=== PATIENT | female | born 1940 | race Caucasian/White ===

== ENCOUNTER 2018-02-26 08:20 | Emergency (ER) | payer MEDICARE, OTHER ==
[~2018-02-26] VITALS: Ht 154.9 cm; Wt 48.5 kg
[~2018-02-26 08:20] MED LIST: CARAFATE1 GM; FAMOTIDINE20 MG PO; FENTANYL TD; FENTANYL1 EAC1; HYDROCODONE-AP1 EA10 PO; KLONOPIN0.5 MG PO; SERTRALINE HCL100 MG PO; ULTRAM50 MG PO; XANAX0.5 MG PO; Z.0.ATENOLOL50 MG PO; Z.0.PAXIL20 MG PO; Z.0.ZOLOFT50 MG PO
--- OUTSIDE RECORDS SUMMARY | 2018-02-26 08:24 | XMS REPORT | Summary of Care ---
Author Author [facility] Organization [facility] Address Unknown Phone Unavailable Encounter JO Tim(IRENE) [id number] Date(s): 02/03/17 - 02/04/17 [facility] [address] [place] [address]- Discharge Diagnosis: Lumbar compression fracture Discharge Disposition: Home or Self Care Attending Physician: Brian Black MD Vital Signs 1 2 3 Most recent to oldest [Reference Range]: 157.48 cm (02/03/17 3:30 PM) Height 98.5 DegF (02/03/17 3:30 PM) Temperature Oral [96.4-99.1 DegF] 133/61 mmHg (02/04/17 12:16 AM) 125/53 mmHg (02/03/17 10:49 PM) 132/62 mmHg (02/03/17 9:15 PM) Blood Pressure [90-140/60-90 mmHg] 18 BRMIN (02/03/17 3:30 PM) Respiratory Rate [14-20 BRMIN] 69 bpm (02/04/17 12:16 AM) 69 bpm (02/03/17 3:30 PM) Peripheral Pulse Rate [60-100 bpm] 51.364 kg (02/03/17 3:30 PM) Weight 20.71 m2 (02/03/17 3:30 PM) Body Mass Index Problem List Condition Effective Dates Status Health Status Informant Abdominal Active pain(Confirmed) Anxiety(Confirmed) Active Arthritis(Confirmed) Resolved Back pain(Confirmed) Active Cholecystectomy(Conf Active irmed) Reflux(Confirmed) Active Allergies, Adverse Reactions, Alerts Substance Reaction Severity Status codeine sulfate Active penicillins Active sulfa drugs Active Medications Dilaudid 0.5 mg, Route: IVP, ONCE, Dosing Weight 51.364, kg, Priority: STAT, Start date: 02/03/17 23:18:00 CDT, Stop date: 02/03/17 23:18:00 CDT Start Date: 02/03/17 Stop Date: 02/04/17 Status: Completed morphine Sulfate 4 mg, 1 mL, Route: IVP, Drug form: SOLN, ONCE, Dosing Weight 51.364, kg, Priorit y: STAT, Start date: 02/03/17 20:04:00 CDT, Stop date: 02/03/17 20:04:00 CDT Notes: (Same as:MORPhine Sulfate) Start Date: 02/03/17 Stop Date: 02/03/17 Status: Completed ondansetron 4 mg, 2 mL, Route: IVP, Drug form: INJ, ONCE, Dosing Weight 51.364, kg, Priority : STAT, Start date: 02/03/17 20:04:00 CDT, Stop date: 02/03/17 20:04:00 CDT Notes: (Same as: Stephen) MEDICATION WASTE Product Size: 4 mgProduct Was evan: ___ mg Start Date: 02/03/17 Stop Date: 02/03/17 Status: Completed tramadol 50 mg oral tablet 50 mg=1 tab, PO, BID, X 15 day, # 20 tab, 0 Refill(s) Start Date: 02/03/17 Stop Date: 02/18/17 Status: Ordered Results ELECTROLYTES Most recent to 1 oldest [Reference Range]: Sodium Lvl [135-145 139 mEq/L mEq/L] (02/03/17 8:34 PM) Potassium Lvl 3.6 mEq/L [3.5-5.1 mEq/L] (02/03/17 8:34 PM) Chloride Lvl [95-109 108 mEq/L mEq/L] (02/03/17 8:34 PM) CO2 [24-32 mEq/L] 23 mEq/L *LOW* (02/03/17 8:34 PM) AGAP [10.0-20.0 11.6 mEq/L mEq/L] (02/03/17 8:34 PM) CHEM PANEL Most recent to 1 oldest [Reference Range]: Creatinine Lvl 0.75 mg/dL [0.50-1.40 mg/dL] (02/03/17 8:34 PM) eGFR 79 mL/min/1.73m2 1 *NA* (02/03/17 8:34 PM) BUN [7-22 mg/dL] 13 mg/dL (02/03/17 8:34 PM) B/C Ratio [6-25] 17 (02/03/17 8:34 PM) Glucose Lvl [70-99 106 mg/dL mg/dL] *HI* (02/03/17 8:34 PM) Total Protein 7.4 g/dL [6.4-8.4 g/dL] (02/03/17 8:34 PM) Albumin Lvl [3.5-5.0 3.4 g/dL g/dL] *LOW* (02/03/17 8:34 PM) Globulin [2.7-4.2 4.0 g/dL g/dL] (02/03/17 8:34 PM) A/G Ratio [0.7-1.6] 0.8 (02/03/17 8:34 PM) Calcium Lvl 8.6 mg/dL [8.5-10.5 mg/dL] (02/03/17 8:34 PM) ALT [0-65 unit/L] 11 unit/L (02/03/17 8:34 PM) AST [0-37 unit/L] 12 unit/L (02/03/17 8:34 PM) Alk Phos [39-136 110 unit/L unit/L] (02/03/17 8:34 PM) Bili Total [0.2-1.3 0.3 mg/dL mg/dL] (02/03/17 8:34 PM) 1Result Comment: The eGFR is calculated using the CKD-EPI formula. In most young, healthy individuals the eGFR will be >90 mL/min/1.73m2. The eGFR declines with age. An eGFR of 60-89 may be normal in some populations, particularly the elderly, for whom the CKD-EPI formula has not been extensively validated. Use of the eGFR is not recommended in the following populations: Individuals with unstable creatinine concentrations, including patients and those with serious co-morbid conditions. Patients with extremes in muscle mass or diet. The data above are obtained from the National Kidney Disease Education Program ( NKDEP) which additionally recommends that when the eGFR is used in patients with extremes of body mass index for purposes of drug dosing, the eGFR should be mul tiplied by the estimated BMI. HEMATOLOGY Most recent to 1 oldest [Reference Range]: WBC [3.7-10.4 K/CMM] 8.5 K/CMM (02/03/17 8:34 PM) RBC [4.20-5.40 4.13 M/CMM M/CMM] *LOW* (02/03/17 8:34 PM) Hgb [12.0-16.0 g/dL] 13.5 g/dL (02/03/17 8:34 PM) Hct [36.0-48.0 %] 40.0 % (02/03/17 8:34 PM) MCV [80.0-98.0 fL] 96.7 fL (02/03/17 8:34 PM) MCH [27.0-31.0 pg] 32.7 pg *HI* (02/03/17 8:34 PM) MCHC [32.0-36.0 33.8 g/dL g/dL] (02/03/17 8:34 PM) RDW [11.5-14.5 %] 13.0 % (02/03/17 8:34 PM) Platelet [133-450 246 K/CMM K/CMM] (02/03/17 8:34 PM) MPV [7.4-10.4 fL] 7.8 fL (02/03/17 8:34 PM) Segs [45.0-75.0 %] 57.7 % (02/03/17 8:34 PM) Lymphocytes 30.7 % [20.0-40.0 %] (02/03/17 8:34 PM) Monocytes [2.0-12.0 8.3 % %] (02/03/17 8:34 PM) Eosinophils [0.0-4.0 2.8 % %] (02/03/17 8:34 PM) Basophils [0.0-1.0 0.5 % %] (02/03/17 8:34 PM) Segs-Bands # 4.9 K/CMM [1.5-8.1 K/CMM] (02/03/17 8:34 PM) Lymphocytes # 2.6 K/CMM [1.0-5.5 K/CMM] (02/03/17 8:34 PM) Monocytes # [0.0-0.8 0.7 K/CMM K/CMM] (02/03/17 8:34 PM) Eosinophils # 0.2 K/CMM [0.0-0.5 K/CMM] (02/03/17 8:34 PM) Immunizations Given and Recorded Vaccine Date Status Refusal Reason pneumococcal 23-valent vaccine 12/11/10 Given Procedures No data available for this section Social History Social History Type Response Smoking Status Never smoker; Exposure to Tobacco Smoke None; Cigarette Smoking Last 365 Days No; Reg Smoking Cessation Counseling No Assessment and Plan No data available for this section
--- OUTSIDE RECORDS SUMMARY | 2018-02-26 08:24 | XMS REPORT | CCD ---
Author Author Auto Generated Organization [facility] Address Unknown Phone Unavailable Care Team Providers Care [employer] Employee Name Role Phone Nguyễn Colindres CP Allergies, Adverse Reactions, Alerts Substance Reaction Status penicillins Active sulfa drugs Active Problem List Condition Effective Dates Status Abdominal pain Active Anxiety Active Back pain Active Cholecystectomy Active Reflux Active Medications Medication Instructions Start Date End Date Status pneumococcal 0.5 ml, Route: IM, Drug Form: INJ, 12/11/2010 12/11/2010 Completed 23-valent vaccine Start date: 12/11/10 9:00:00, Stop date: 12/11/10 9:00:00 Immunizations Vaccine Date Status pneumococcal 23-valent vaccine 12/11/2010 Auth (Verified)
--- OUTSIDE RECORDS SUMMARY | 2018-02-26 08:24 | XMS REPORT | Summary of Care ---
Author Author [facility] Organization [facility] Address Unknown Phone Unavailable Encounter JO Tim(IRENE) [id number] Date(s): 02/05/17 - 02/05/17 [facility] [address] [place] [address]- [phone] Discharge Diagnosis: Acute right-sided low back pain Discharge Diagnosis: Acute UTI Discharge Disposition: Home or Self Care Attending Physician: Idris Nichole DO Vital Signs 1 2 3 Most recent to oldest [Reference Range]: 162.56 cm (02/05/17 3:43 PM) Height 98.5 DegF (02/05/17 7:17 PM) 98.4 DegF (02/05/17 3:43 PM) Temperature Oral [96.4-99.1 DegF] 129/56 mmHg (02/05/17 7:17 PM) 108/41 mmHg (02/05/17 6:01 PM) 136/67 mmHg (02/05/17 3:43 PM) Blood Pressure [90-140/60-90 mmHg] 15 BRMIN (02/05/17 7:17 PM) 16 BRMIN (02/05/17 6:01 PM) 17 BRMIN (02/05/17 3:43 PM) Respiratory Rate [14-20 BRMIN] 68 bpm (02/05/17 7:17 PM) 72 bpm (02/05/17 6:01 PM) 68 bpm (02/05/17 3:43 PM) Peripheral Pulse Rate [60-100 bpm] 50 kg (02/05/17 3:43 PM) Weight 18.92 m2 (02/05/17 3:43 PM) Body Mass Index Problem List Condition Effective Dates Status Health Status Informant Abdominal Active pain(Confirmed) Anxiety(Confirmed) Active Arthritis(Confirmed) Resolved Back pain(Confirmed) Active Cholecystectomy(Conf Active irmed) Reflux(Confirmed) Active Allergies, Adverse Reactions, Alerts Substance Reaction Severity Status codeine sulfate Active penicillins Active sulfa drugs Active Medications fosfomycin 3 gm, 1 pkt, Route: PO, Drug form: PDR/REC, ONCE, Dosing Weight 50, kg, Start da te: 02/05/17 19:16:00 CDT, Stop date: 02/05/17 19:16:00 CDT Notes: (Same as: Monural) mix w/ 90 to 120 ml (3 to 4 ounces) of water and stir to dissolve. Do not use hot water. Take immediately after dissolving in water. Start Date: 02/05/17 Stop Date: 02/05/17 Status: Ordered tramadol 50 mg, 1 tab, Route: PO, Drug form: TAB, ONCE, Dosing Weight 50, kg, Start date: 02/05/17 18:09:00 CDT, Stop date: 02/05/17 18:09:00 CDT, .. Notes: Not to exceed 400mg/day. (Same As: Ultram) Start Date: 02/05/17 Stop Date: 02/05/17 Status: Completed Tylenol with Codeine #3 oral tablet 1 tab, PO, Q6H, PRN Pain, X 7 day, # 11 tab, 0 Refill(s) Start Date: 02/05/17 Stop Date: 02/12/17 Status: Ordered Results URINE AND STOOL Most recent to 1 oldest [Reference Range]: UA Turbidity [Clear] Clear (02/05/17 6:37 PM) UA Color Ltyellow *NA* (02/05/17 6:37 PM) UA pH [5.0-8.0] 5.0 (02/05/17 6:37 PM) UA Spec Grav 1.013 [<=1.030] (02/05/17 6:37 PM) UA Glucose [Negative Negative mg/dL mg/dL] *NA* (02/05/17 6:37 PM) UA Blood [Negative] Negative (02/05/17 6:37 PM) UA Ketones [Negative 20 mg/dL mg/dL] *ABN* (02/05/17 6:37 PM) UA Protein [Negative Negative mg/dL mg/dL] (02/05/17 6:37 PM) UA Urobilinogen <=1.0 mg/dL [0.1-1.0 mg/dL] *NA* (02/05/17 6:37 PM) UA Bili [Negative] Negative *NA* (02/05/17 6:37 PM) UA Leuk Est Large [Negative] *ABN* (02/05/17 6:37 PM) UA Nitrite Negative [Negative] (02/05/17 6:37 PM) UA WBC [0-5 /HPF] 40 /HPF *HI* (02/05/17 6:37 PM) UA RBC [0-2 /HPF] 1 /HPF (02/05/17 6:37 PM) UA Bacteria [None Occasional /HPF Seen /HPF] *NA* (02/05/17 6:37 PM) UA Sq Epi [Few /LPF] Occasional /LPF *NA* (02/05/17 6:37 PM) UA Amorph Nicole [None Occasional /HPF Seen /HPF] *NA* (02/05/17 6:37 PM) UA Renal Epi [<=0 7 /LPF /LPF] *HI* (02/05/17 6:37 PM) Immunizations Given and Recorded Vaccine Date [...]
--- OUTSIDE RECORDS SUMMARY | 2018-02-26 08:24 | XMS REPORT | Continuity of Care Document ---
Author Author [facility] Interface Address Unknown Phone Unavailable Problems Problem Status Onset Date Classification Date Reported Comments Source Discharge Diagnosis: Acute right-sided low back pain 02/05/2017 02/08/2017 [facility] Discharge Diagnosis: Acute UTI 02/05/2017 02/08/2017 [facility] Discharge Diagnosis: Lumbar compression fracture 02/03/2017 02/07/2017 [facility] BACK PAIN Active 02/03/2017 [facility] DEPRESSION Active 01/30/2017 [facility] Discharge Diagnosis: Arm pain 02/14/2016 02/17/2016 [facility] FALL Active 02/14/2016 [facility] V76.11 - SCREEN MAMMOGRA Active 07/10/2014 [facility] [place] Discharge Diagnosis: Urinary tract infection 10/20/2013 10/22/2013 [facility] Discharge Diagnosis: Joint pain 10/20/2013 10/22/2013 [facility] PAIN-GENERALIZED Active 10/20/2013 [facility] ABD PAIN Active 06/06/2011 [facility] 719.46 - JOINT PAIN-L/LE Active 04/22/2011 [facility] [place] Abdominal pain Active Problem 07/06/2012 [facility] [place] Anxiety Active Problem 07/06/2012 [facility] [place] Back pain Active Problem 07/06/2012 [facility] [place] Cholecystectomy Active Problem 07/06/2012 [facility] [place] Reflux Active Problem 07/06/2012 [facility] [place] Abdominal pain Active Problem 02/08/2017 [facility] Anxiety Active Problem 02/08/2017 [facility] Arthritis Resolved Problem 02/08/2017 [facility] Back pain Active Problem 02/08/2017 [facility] Cholecystectomy Active Problem 02/08/2017 [facility] Reflux Active Problem 02/08/2017 [facility] Medications Medication Details Route Status Patient Instructions Ordering Provider Order Date Source Fosfomycin 3 gm, 1 pkt, Route: PO, Drug form: PDR/REC, ONCE, Dosing Weight 50, kg, Start date: 02/05/17 19:16:00 CDT, Stop date: 02/05/17 19:16:00 CDTNotes: (Same as: Monural) mix w/ 90 to 120 ml (3 to 4 ounces) of water and stir to dissolve. Do not use hot water. Take immediately after dissolving in water. Inactive 02/06/2017 [facility] Acetaminophen 300 MG / Codeine Phosphate 30 MG Oral Tablet [Tylenol with Codeine #3] 1 tab, PO, Q6H, PRN Pain, X 7 day, # 11 tab, 0 Refill(s) Active 02/06/2017 [facility] Tramadol 50 mg, 1 tab, Route: PO, Drug form: TAB, ONCE, Dosing Weight 50, kg, Start date: 02/05/17 18:09:00 CDT, Stop date: 02/05/17 18:09:00 CDT, ..Notes: Not to exceed 400mg/day. (Same As: Ultram) Inactive 02/05/2017 [facility] Dilaudid 0.5 mg, Route: IVP, ONCE, Dosing Weight 51.364, kg, Priority: STAT, Start date: 02/03/17 23:18:00 CDT, Stop date: 02/03/17 23:18:00 CDT No Longer Active 02/04/2017 [facility] tramadol hydrochloride 50 MG Oral Tablet 50 mg=1 tab, PO, BID, X 15 day, # 20 tab, 0 Refill(s) Active 02/04/2017 [facility] Ondansetron 4 mg, 2 mL, Route: IVP, Drug form: INJ, ONCE, Dosing Weight 51.364, kg, Priority: STAT, Start date: 02/03/17 20:04:00 CDT, Stop date: 02/03/17 20:04:00 CDTNotes: (Same as: Stephen) MEDICATION WASTE Product Size: 4 mg Product Wasted: ___ mg Inactive 02/04/2017 [facility] Morphine 4 mg, 1 mL, Route: IVP, Drug form: SOLN, ONCE, Dosing Weight 51.364, kg, Priority: STAT, Start date: 02/03/17 20:04:00 CDT, Stop date: 02/03/17 20:04:00 CDTNotes: (Same as:MORPhine Sulfate) Inactive 02/04/2017 [facility] Morphine 4 mg, 1 mL, Route: IVP, Drug form: SOLN, ONCE, Dosing Weight 54.545, kg, Priority: STAT, Start date: 01/30/17 15:10:00 CDT, Stop date: 01/30/17 15:10:00 CDTNotes: (Same as:MORPhine Sulfate) Inactive 01/30/2017 [facility] Zofran 4 mg, 2 mL, Route: IVP, Drug form: INJ, ONCE, Dosing Weight 54.545, kg, Priority: STAT, Start date: 01/30/17 15:10:00 CDT, Stop date: 01/30/17 15:10:00 CDTNotes: (Same as: Zofran) MEDICATION WASTE Product Size: 4 mg Product Wasted: ___ mg Inactive 01/30/2017 [facility] Ativan 1 mg, 0.5 mL, Route: IVP, Drug form: INJ, ONCE, Dosing Weight 54.545, kg, Priority: STAT, Start date: 01/30/17 12:35:00 CDT, Stop date: 01/30/17 12:35:00 CDTNotes: (Same as: Ativan) Inactive 01/30/2017 [facility] Acetaminophen 325 MG / Hydrocodone Bitartrate 5 MG Oral Tablet 1 tab, Route: PO, Drug Form: TAB, Dosing Weight 54.545, kg, ONCE, STAT, Start date: 01/30/17 11:51:00 CDT, Stop date: 01/30/17 11:51:00 CDT Inactive 01/30/2017 [facility] Alprazolam 1 MG Oral Tablet [Xanax] 1 mg=1 tab, PO, Q8H, PRN Anxiety, X 10 day, # 7 tab, 0 Refill(s) Active 02/14/2016 [facility] Morphine 2 mg, Route: IM, ONCE, Dosing Weight 46.364, kg, Priority: STAT, Start date: 02/14/16 13:32:00 CDT, Stop date: 02/14/16 13:32:00 CDT Inactive 02/14/2016 [facility] tramadol hydrochloride 50 MG Oral Tablet 50 mg=1 tab, PO, Q4H, PRN as needed for pain, X 7 day, # 24 tab, 0 Refill(s) Active 02/14/2016 [facility] Morphine 2 mg, Route: IM, ONCE, Dosing Weight 46.364, kg, Priority: STAT, Start date: 02/14/16 10:45:00 CDT, Stop date: 02/14/16 10:45:00 CDT Inactive 02/14/2016 [facility] Ciprofloxacin 500 MG Oral Tablet [Cipro] 500 mg=1 tab, PO, Q12H, # 14 tab, 0 Refill(s) Active 10/20/2013 [facility] Zofran 4 mg, Route: IVP, Drug form: INJ, ONCE, Dosing Weight 50, kg, Priority: STAT, Start date: 10/20/13 12:32:00, Stop date: 10/20/13 12:32:00 Inactive 10/20/2013 [facility] Acetaminophen 325 MG / Hydrocodone Bitartrate 10 MG Oral Tablet [[place] 10/325] 1 tab, Route: PO, Dosing Weight 50, kg, ONCE, Start date: 10/20/13 12:14:00, Stop date: 10/20/13 12:14:00 Inactive 10/20/2013 [facility] Saline Flush 0.9% 5 mL, Route: IVP, Drug Form: INJ, Dosing Weight 50, kg, PRN, PRN Line Flush, Start date: 10/20/13 10:55:00, Duration: 24 hr, Stop date: 10/21/13 10:54:00Notes: Same as: BD Posiflush Sterile Inactive 10/20/2013 [facility] pneumococcal 23-valent vaccine 0.5 ml, Route: IM, Drug Form: INJ, Start date: 12/11/10 9:00:00, Stop date: 12/11/10 9:00:00 IM No Longer Active [facility] 12/11/2010 [facility] Allergies, Adverse Reactions, Alerts Substance Category Reaction Severity Reaction type Status Date Reported Comments Source penicillins Assertion Drug allergy Active [facility] sulfa drugs Assertion Drug allergy Active [facility] codeine sulfate Assertion Drug allergy Active [facility] Immunizations Immunization Date Given Site Status Last Updated Comments Source pneumococcal 23-valent vaccine 12/11/2010 completed [place] [facility] [place] pneumococcal 23-valent vaccine 12/11/2010 Left Deltoid completed [place] [facility] Results Order Name Results Value Reference Range Date Interpretation Comments Source URINE AND STOOL UA Urobilinogen <=1.0 mg/dL 0.1 - 1.0 02/05/2017 [facility] URINE AND STOOL UA Color Ltyellow 02/05/2017 [facility] URINE AND STOOL UA Bili Negative *NA* (02/05/17 6:37 PM) Negative 02/05/2017 [facility] URINE AND STOOL UA Blood Negative (02/05/17 6:37 PM) Negative 02/05/2017 [facility] URINE AND STOOL UA Ketones 20 mg/dL Negative mg/dL 02/05/2017 [facility] URINE AND STOOL UA Glucose Negative mg/dL Negative mg/dL 02/05/2017 [facility] URINE AND STOOL UA Amorph Nicole Occasional /HPF None Seen /HPF 02/05/2017 [facility] URINE AND STOOL UA Renal Epi 7 /LPF <=0 /LPF 02/05/2017 [facility] URINE AND STOOL UA Bacteria Occasional /HPF None Seen /HPF 02/05/2017 [facility] URINE AND STOOL UA RBC 1 /HPF 0 - 2 02/05/2017 [facility] URINE AND STOOL UA WBC 40 /HPF 0 - 5 02/05/2017 [facility] URINE AND STOOL UA Sq Epi Occasional /LPF Few /LPF 02/05/2017 [facility] URINE AND STOOL UA Leuk Est Large *ABN* (02/05/17 6:37 PM) Negative 02/05/2017 [facility] URINE AND STOOL UA Nitrite Negative (02/05/17 6:37 PM) Negative 02/05/2017 [facility] URINE AND STOOL UA Turbidity Clear (02/05/17 6:37 PM) Clear 02/05/2017 [facility] URINE AND STOOL UA Spec Grav 1.013 <=1.030 02/05/2017 [facility] URINE AND STOOL UA pH 5.0 5.0 - 8.0 02/05/2017 [facility] URINE AND STOOL UA Protein Negative mg/dL Negative mg/dL 02/05/2017 [facility] CHEM PANEL eGFR 79 mL/min/1.73m2 02/04/2017 Result Comment: The eGFR is calculated using the [...] from the National Kidney Disease Education Program (NKDEP) which additionally recommends that when the eGFR is used in patients with extremes of body mass index for purposes of drug dosing, the eGFR should be multiplied by the estimated BMI. [facility] CHEM PANEL Bili Total 0.3 mg/dL 0.2 - 1.3 02/04/2017 [facility] CHEM PANEL AST 12 unit/L 0 - 37 02/04/2017 [facility] CHEM PANEL ALT 11 unit/L 0 - 65 02/04/2017 [facility] CHEM PANEL Albumin Lvl 3.4 g/dL 3.5 - 5.0 02/04/2017 [facility] CHEM PANEL Total Protein 7.4 g/dL 6.4 - 8.4 02/04/2017 [facility] CHEM PANEL CO2 23 meq/L 24 - 32 02/04/2017 [facility] CHEM PANEL Calcium Lvl 8.6 mg/dL 8.5 - 10.5 02/04/2017 [facility] CHEM PANEL Chloride Lvl 108 meq/L 95 - 109 02/04/2017 [facility] CHEM PANEL Potassium Lvl 3.6 meq/L 3.5 - 5.1 02/04/2017 [facility] CHEM PANEL Sodium Lvl 139 meq/L 135 - 145 02/04/2017 [facility] CHEM PANEL Alk Phos 110 unit/L 39 - 136 02/04/2017 [facility] CHEM PANEL Creatinine Lvl 0.75 mg/dL 0.50 - 1.40 02/04/2017 [facility] CHEM PANEL BUN 13 mg/dL 7 - 22 02/04/2017 [facility] CHEM PANEL Glucose Lvl 106 mg/dL 70 - 99 02/04/2017 [facility] CHEM PANEL A/G Ratio 0.8 0.7 - 1.6 02/04/2017 [facility] CHEM PANEL Globulin 4.0 g/dL 2.7 - 4.2 02/04/2017 [facility] CHEM PANEL AGAP 11.6 meq/L 10.0 - 20.0 02/04/2017 [facility] CHEM PANEL B/C Ratio 17 6 - 25 02/04/2017 [facility] HEMATOLOGY MCHC 33.8 g/dL 32.0 - 36.0 02/04/2017 [facility] HEMATOLOGY MCH 32.7 pg 27.0 - 31.0 02/04/2017 [facility] HEMATOLOGY Platelet 246 K/CMM 133 - 450 02/04/2017 [facility] MPV 7.8 fL 7.4 - 10.4 02/04/2017 [facility] RDW 13.0 % 11.5 - 14.5 02/04/2017 [facility] RBC 4.13 M/CMM 4.20 - 5.40 02/04/2017 [facility] Hgb 13.5 g/dL 12.0 - 16.0 02/04/2017 [facility] WBC 8.5 K/CMM 3.7 - 10.4 02/04/2017 [facility] MCV 96.7 fL 80.0 - 98.0 02/04/2017 [facility] Hct 40.0 % 36.0 - 48.0 02/04/2017 [facility] Eosinophils # 0.2 K/CMM 0.0 - 0.5 02/04/2017 [facility] Monocytes # 0.7 K/CMM 0.0 - 0.8 02/04/2017 [facility] Eosinophils 2.8 % 0.0 - 4.0 02/04/2017 [facility] Monocytes 8.3 % 2.0 - 12.0 02/04/2017 [facility] Lymphocytes # 2.6 K/CMM 1.0 - 5.5 02/04/2017 [facility] Segs-Bands # 4.9 K/CMM 1.5 - 8.1 02/04/2017 [facility] Basophils 0.5 % 0.0 - 1.0 02/04/2017 [facility] Lymphocytes 30.7 % 20.0 - 40.0 02/04/2017 [facility] Segs 57.7 % 45.0 - 75.0 02/04/2017 [facility] Spine lumbar wo contrast CT (ER) Spine lumbar wo contrast CT (ER) EXAM: CT lumbar spine HISTORY: Fall, back pain COMPARISON: MRI lumbar spine 07/04/2012 TECHNIQUE: Axial images with sagittal and coronal reformats. No contrast. DLP 447 FINDINGS: Compression fractures of L1 and L2 are old with retropulsion of the posterior- superior margin of L1 with mild-moderate canal stenosis. Compression fracture superior endplate of T12 has developed since 07/04/2012 and is age-indeterminate with mild retropulsion of the posterior superior margin with mild canal stenosis. Degenerative disc protrusions throughout the lumbar spine with varying degrees of canal stenoses most pronounced at L2-L3, L3-L4 and L4-L5. Multilevel neuroforaminal stenoses. Scoliosis. Generalized osteopenia. Small-moderate hiatal hernia. Scarring left kidney. SL: TVU-PC 02/03/2017 - - Read by: Checo Friend MD Dictated Date/time: 02/03/17 17:38 Electronically Signed by: Checo Friend MD 02/03/17 17:46 FINAL REPORT [facility] Pelvis wo IV contrast CT Pelvis wo IV contrast CT EXAM: CT pelvis HISTORY: Low back pain, fall COMPARISON: CT 12/10/2010 TECHNIQUE: Axial images with sagittal and coronal reformats. No contrast. DLP 960 FINDINGS: Nondisplaced fracture of the lower sacrum. Question of a small thin vertical lucency in the lesser trochanter of the left femur, probably a vascular channel; fracture is not completely excluded. Correlate for focal pain. MRI of the left hip can further evaluate as clinically indicated. Diverticulosis sigmoid colon. TVU-PC 02/03/2017 - - Read by: Checo Friend MD Dictated Date/time: 02/03/17 17:46 Electronically Signed by: Checo Friend MD 02/03/17 17:56 FINAL REPORT [facility] CHEM PANEL eGFR 86 mL/min/1.73m2 01/30/2017 Result Comment: The eGFR is calculated using the [...] from the National Kidney Disease Education Program (NKDEP) which additionally recommends that when the eGFR is used in patients with extremes of body mass index for purposes of drug dosing, the eGFR should be multiplied by the estimated BMI. [facility] CHEM PANEL Calcium Lvl 8.4 mg/dL 8.5 - 10.5 01/30/2017 [facility] CHEM PANEL Total Protein 7.7 g/dL 6.4 - 8.4 01/30/2017 [facility] CHEM PANEL CO2 28 meq/L 24 - 32 01/30/2017 [facility] CHEM PANEL Bili Total 0.7 mg/dL 0.2 - 1.3 01/30/2017 [facility] CHEM PANEL ALT 13 unit/L 0 - 65 01/30/2017 [facility] CHEM PANEL Alk Phos 115 unit/L 39 - 136 01/30/2017 [facility] CHEM PANEL Albumin Lvl 3.7 g/dL 3.5 - 5.0 01/30/2017 [facility] CHEM PANEL AST 17 unit/L 0 - 37 01/30/2017 [facility] CHEM PANEL Potassium Lvl 4.0 meq/L 3.5 - 5.1 01/30/2017 [facility] CHEM PANEL Chloride Lvl 106 meq/L 95 - 109 01/30/2017 [facility] CHEM PANEL Glucose Lvl 84 mg/dL 70 - 99 01/30/2017 [facility] CHEM PANEL Creatinine Lvl 0.69 mg/dL 0.50 - 1.40 01/30/2017 [facility] CHEM PANEL BUN 9 mg/dL 7 - 22 01/30/2017 [facility] CHEM PANEL Sodium Lvl 140 meq/L 135 - 145 01/30/2017 [facility] CHEM PANEL Globulin 4.0 g/dL 2.7 - 4.2 01/30/2017 [facility] CHEM PANEL B/C Ratio 13 6 - 25 01/30/2017 [facility] CHEM PANEL AGAP 10.0 meq/L 10.0 - 20.0 01/30/2017 [facility] CHEM PANEL A/G Ratio 0.9 0.7 - 1.6 01/30/2017 [facility] DRUG SCREEN U Phencyc Scr Negative *NA* (01/30/17 11:27 AM) Negative 01/30/2017 [facility] DRUG SCREEN UDS Note See Note (01/30/17 11:27 AM) 01/30/2017 [facility] DRUG SCREEN U Opiate Scr Negative *NA* (01/30/17 11:27 AM) Negative 01/30/2017 [facility] DRUG SCREEN U Amph Scr Negative *NA* (01/30/17 11:27 AM) Negative 01/30/2017 [facility] DRUG SCREEN U Benzodia Scr Positive *ABN* (01/30/17 11:27 AM) Negative 01/30/2017 [facility] DRUG SCREEN U Cannab Scr Negative *NA* (01/30/17 11:27 AM) Negative 01/30/2017 [facility] DRUG SCREEN U Ella Scr Negative *NA* (01/30/17 11:27 AM) Negative 01/30/2017 [facility] DRUG SCREEN U Cocaine Scr Negative *NA* (01/30/17 11:27 AM) Negative 01/30/2017 [facility] HEMATOLOGY Eosinophils # 0.1 K/CMM 0.0 - 0.5 01/30/2017 [facility] HEMATOLOGY Lymphocytes 27.1 % 20.0 - 40.0 01/30/2017 [facility] HEMATOLOGY Segs 61.5 % 45.0 - 75.0 01/30/2017 [facility] HEMATOLOGY Monocytes 9.0 % 2.0 - 12.0 01/30/2017 [facility] HEMATOLOGY Lymphocytes # 1.4 K/CMM 1.0 - 5.5 01/30/2017 [facility] HEMATOLOGY Segs-Bands # 3.1 K/CMM 1.5 - 8.1 01/30/2017 [facility] Monocytes # 0.5 K/CMM 0.0 - 0.8 01/30/2017 [facility] Basophils 0.5 % 0.0 - 1.0 01/30/2017 [facility] HEMATOLOGY Eosinophils 1.9 % 0.0 - 4.0 01/30/2017 [facility] MCV 95.6 fL 80.0 - 98.0 01/30/2017 [facility] MCH 32.6 pg 27.0 - 31.0 01/30/2017 [facility] MCHC 34.1 g/dL 32.0 - 36.0 01/30/2017 [facility] RDW 12.8 % 11.5 - 14.5 01/30/2017 [facility] Platelet 239 K/CMM 133 - 450 01/30/2017 [facility] MPV 7.6 fL 7.4 - 10.4 01/30/2017 [facility] Hct 41.1 % 36.0 - 48.0 01/30/2017 [facility] WBC 5.1 K/CMM 3.7 - 10.4 01/30/2017 [facility] HEMATOLOGY RBC 4.30 M/CMM 4.20 - 5.40 01/30/2017 [facility] Hgb 14.0 g/dL 12.0 - 16.0 01/30/2017 [facility] URINE AND STOOL UA Urobilinogen <=1.0 mg/dL 0.1 - 1.0 01/30/2017 [facility] URINE AND STOOL UA Mucus Moderate /LPF None Seen /LPF 01/30/2017 [facility] URINE AND STOOL UA Protein Negative mg/dL Negative mg/dL 01/30/2017 [facility] URINE AND STOOL UA Ketones Negative mg/dL Negative mg/dL 01/30/2017 [facility] URINE AND STOOL UA Glucose Negative mg/dL Negative mg/dL 01/30/2017 [facility] URINE AND STOOL UA Turbidity Clear (01/30/17 11:27 AM) Clear 01/30/2017 [facility] URINE AND STOOL UA Color Yellow *NA* (01/30/17 11:27 AM) Yellow 01/30/2017 [facility] URINE AND STOOL UA pH 6.0 5.0 - 8.0 01/30/2017 [facility] URINE AND STOOL UA Spec Grav 1.011 <=1.030 01/30/2017 [facility] URINE AND STOOL UA RBC 5 /HPF 0 - 2 01/30/2017 [facility] URINE AND STOOL UA WBC 10 /HPF 0 - 5 01/30/2017 [facility] URINE AND STOOL UA Sq Epi Occasional /LPF Few /LPF 01/30/2017 [facility] URINE AND STOOL UA Bili Negative *NA* (01/30/17 11:27 AM) Negative 01/30/2017 [facility] URINE AND STOOL UA Leuk Est Moderate *ABN* (01/30/17 11:27 AM) Negative 01/30/2017 [facility] URINE AND STOOL UA Nitrite Negative (01/30/17 11:27 AM) Negative 01/30/2017 [facility] URINE AND STOOL UA Blood Negative (01/30/17 11:27 AM) Negative 01/30/2017 [facility] URINE AND STOOL UA Urobilinogen <=1.0 mg/dL 0.1 - 1.0 02/14/2016 [facility] URINE AND STOOL UA Nitrite Negative (02/14/16 11:12 AM) Negative 02/14/2016 [facility] URINE AND STOOL UA Bili Negative *NA* (02/14/16 11:12 AM) Negative 02/14/2016 [facility] URINE AND STOOL UA Leuk Est Negative (02/14/16 11:12 AM) Negative 02/14/2016 [facility] URINE AND STOOL UA Sq Epi Occasional /LPF Few /LPF 02/14/2016 [facility] URINE AND STOOL UA Glucose Negative mg/dL Negative mg/dL 02/14/2016 [facility] URINE AND STOOL UA Ketones Negative mg/dL Negative mg/dL 02/14/2016 [facility] URINE AND STOOL UA Protein Negative mg/dL Negative mg/dL 02/14/2016 [facility] URINE AND STOOL UA pH 6.0 5.0 - 8.0 02/14/2016 [facility] URINE AND STOOL UA Spec Grav 1.016 <=1.030 02/14/2016 [facility] URINE AND STOOL UA Mucus Few /LPF None Seen /LPF 02/14/2016 [facility] URINE AND STOOL UA Blood Negative (02/14/16 11:12 AM) Negative 02/14/2016 [facility] URINE AND STOOL UA Color Yellow *NA* (02/14/16 11:12 AM) Yellow 02/14/2016 [facility] URINE AND STOOL UA Turbidity Clear (02/14/16 11:12 AM) Clear 02/14/2016 [facility] Chest 1view DX Chest 1view DX Patient Name: GADIEL ORTEZ RENFREW : 1940; Age: 75 years y/o Female MR: [id number] Study: Chest 1view DX dated 02/14/2016. Clinical Indication: Dyspnea; Comparison: 12/12/2010 Increased lung volumes suggest emphysematous changes. Enlarged cardiac silhouette and mediastinal structures stable including mild tortuosity of the thoracic aorta. There is prominence of the interstitium to the mid lung and lung base region bilaterally that could represent a mild edema or nonspecific interstitial pneumonitis. No other focal infiltrates within the lungs and no pneumothorax. There is comminuted fracturing of the right humeral neck and of the left humeral head to the left proximal humeral diaphyseal region. These are not well evaluated by this study. There appears to be an older fracture of the right distal clavicle. SL: [id number] 02/14/2016 - - Read by: Marek Aguirre MD Dictated Date/time: 02/14/16 11:09 Electronically Signed by: Marek Aguirre MD 02/14/16 11:12 FINAL REPORT [facility] CHEM PANEL Amylase Lvl 27 unit/L 25 - 115 10/20/2013 [facility] CHEM PANEL B/C Ratio 11 6 - 25 10/20/2013 [facility] CHEM PANEL AGAP 9.7 meq/L 10.0 - 20.0 10/20/2013 [facility] CHEM PANEL A/G Ratio 0.9 0.7 - 1.6 10/20/2013 [facility] CHEM PANEL Globulin 3.4 g/dL 2.0 - 4.0 10/20/2013 [facility] CHEM PANEL eGFR 87 mL/min/1.73m2 10/20/2013 1Result Comment: The eGFR is calculated using [...] from the National Kidney Disease Education Program (NKDEP) which additionally recommends that when the eGFR is used in patients with extremes of body mass index for purposes of drug dosing, the eGFR should be multiplied by the estimated BMI. [facility] CHEM PANEL ALT 13 unit/L 0 - 65 10/20/2013 [facility] CHEM PANEL AST 21 unit/L 0 - 37 10/20/2013 [facility] CHEM PANEL Albumin Lvl 3.2 g/dL 3.5 - 5.0 10/20/2013 [facility] CHEM PANEL Bili Total 0.3 mg/dL 0.2 - 1.3 10/20/2013 [facility] CHEM PANEL Alk Phos 91 unit/L 39 - 136 10/20/2013 [facility] CHEM PANEL Chloride Lvl 108 meq/L 95 - 109 10/20/2013 [facility] CHEM PANEL Potassium Lvl 3.7 meq/L 3.5 - 5.1 10/20/2013 [facility] CHEM PANEL Total Protein 6.6 g/dL 6.4 - 8.4 10/20/2013 [facility] CHEM PANEL Calcium Lvl 8.8 mg/dL 8.5 - 10.5 10/20/2013 [facility] CHEM PANEL CO2 27 meq/L 24 - 32 10/20/2013 [facility] CHEM PANEL Creatinine Lvl 0.7 mg/dL 0.5 - 1.4 10/20/2013 [facility] CHEM PANEL Sodium Lvl 141 meq/L 135 - 145 10/20/2013 [facility] CHEM PANEL Glucose Lvl 96 mg/dL 70 - 99 10/20/2013 2Interpretive Data: Adult reference range values reflect the clinical guidelines of the [place] [employer]. [facility] CHEM PANEL BUN 8 mg/dL 7 - 22 10/20/2013 [facility] CHEM PANEL Lipase Lvl 46 unit/L 73 - 393 10/20/2013 [facility] HEMATOLOGY RDW 12.9 % 11.5 - 14.5 10/20/2013 [facility] HEMATOLOGY Platelet 279 K/CMM 133 - 450 10/20/2013 [facility] HEMATOLOGY MPV 7.1 fL 7.4 - 10.4 10/20/2013 [facility] HEMATOLOGY MCHC 34.4 g/dL 32.0 - 36.0 10/20/2013 [facility] HEMATOLOGY Hgb 11.9 g/dL 12.0 - 16.0 10/20/2013 [facility] HEMATOLOGY RBC 3.53 M/CMM 4.20 - 5.40 10/20/2013 [facility] HEMATOLOGY WBC 7.2 K/CMM 3.7 - 10.4 10/20/2013 [facility] MCH 33.6 pg 27.0 - 31.0 10/20/2013 [facility] MCV 97.8 fL 81.0 - 99.0 10/20/2013 [facility] Hct 34.5 % 36.0 - 48.0 10/20/2013 [facility] HEMATOLOGY Segs 71.8 % 45.0 - 75.0 10/20/2013 [facility] HEMATOLOGY Basophils 0.6 % 0.0 - 1.0 10/20/2013 [facility] Segs-Bands # 5.2 K/CMM 1.5 - 8.1 10/20/2013 [facility] Lymphocytes 16.6 % 20.0 - 40.0 10/20/2013 [facility] Monocytes 8.7 % 2.0 - 12.0 10/20/2013 [facility] HEMATOLOGY Eosinophils 2.3 % 0.0 - 4.0 10/20/2013 [facility] HEMATOLOGY Eosinophils # 0.2 K/CMM 0.0 - 0.5 10/20/2013 [facility] HEMATOLOGY Lymphocytes # 1.2 K/CMM 1.0 - 5.5 10/20/2013 [facility] HEMATOLOGY Monocytes # 0.6 K/CMM 0.0 - 0.8 10/20/2013 [facility] URINE AND STOOL UA Ketones Negative mg/dL Negative mg/dL 10/20/2013 [facility] URINE AND STOOL UA Bili Negative *NA* (10/20/13 11:10 AM) Negative 10/20/2013 [facility] URINE AND STOOL UA Glucose Negative mg/dL Negative mg/dL 10/20/2013 [facility] URINE AND STOOL UA Blood Negative (10/20/13 11:10 AM) Negative 10/20/2013 [facility] URINE AND STOOL UA Nitrite Negative (10/20/13 11:10 AM) Negative 10/20/2013 [facility] URINE AND STOOL UA Spec Grav 1.017 <=1.030 10/20/2013 [facility] URINE AND STOOL UA Color Yellow *NA* (10/20/13 11:10 AM) Yellow 10/20/2013 [facility] URINE AND STOOL UA pH 5.0 5.0 - 8.0 10/20/2013 [facility] URINE AND STOOL UA Turbidity Clear (10/20/13 11:10 AM) Clear 10/20/2013 [facility] URINE AND STOOL UA Protein Negative mg/dL Negative mg/dL 10/20/2013 [facility] URINE AND STOOL UA WBC 2 /HPF 0 - 5 10/20/2013 [facility] URINE AND STOOL UA Sq Epi Occasional /LPF Few /LPF 10/20/2013 [facility] URINE AND STOOL UA Leuk Est Trace *ABN* (10/20/13 11:10 AM) Negative 10/20/2013 [facility] URINE AND STOOL UA RBC 1 /HPF 0 - 2 10/20/2013 [facility] URINE AND STOOL UA Urobilinogen <=1.0 mg/dL 0.1 - 1.0 10/20/2013 [facility] Vital Signs Vital Sign Value Date Comments Source Systolic (mm Hg) 129 02/06/2017 [facility] Diastolic (mm Hg) 56 02/06/2017 [facility] Respitory Rate 15 02/06/2017 [facility] Heart Rate 68 02/06/2017 [facility] Temperature Oral (F) 98.5 F 02/06/2017 [facility] Respitory Rate 16 02/05/2017 [facility] Heart Rate 72 02/05/2017 [facility] Systolic (mm Hg) 108 02/05/2017 [facility] Diastolic (mm Hg) 41 02/05/2017 [facility] Weight 50 02/05/2017 [facility] BMI Calculated 18.92 02/05/2017 [facility] Temperature Oral (F) 98.4 F 02/05/2017 [facility] Respitory Rate 17 02/05/2017 [facility] Height 162.56 cm 02/05/2017 [facility] Heart Rate 68 02/05/2017 [facility] Systolic (mm Hg) 136 02/05/2017 [facility] Diastolic (mm Hg) 67 02/05/2017 [facility] Heart Rate 69 02/04/2017 [facility] Systolic (mm Hg) 133 02/04/2017 [facility] Diastolic (mm Hg) 61 02/04/2017 [facility] Systolic (mm Hg) 125 02/04/2017 [facility] Diastolic (mm Hg) 53 02/04/2017 [facility] Systolic (mm Hg) 132 02/04/2017 [facility] Diastolic (mm Hg) 62 02/04/2017 [facility] Weight 51.364 02/03/2017 [facility] BMI Calculated 20.71 02/03/2017 [facility] Height 157.48 cm 02/03/2017 [facility] Temperature Oral (F) 98.5 F 02/03/2017 [facility] Respitory Rate 18 02/03/2017 [facility] Heart Rate 69 02/03/2017 [facility] Heart Rate 68 01/30/2017 [facility] Respitory Rate 18 01/30/2017 [facility] Systolic (mm Hg) 140 01/30/2017 [facility] Diastolic (mm Hg) 65 01/30/2017 [facility] Heart Rate 68 01/30/2017 [facility] Respitory Rate 18 01/30/2017 [facility] Systolic (mm Hg) 139 01/30/2017 [facility] Diastolic (mm Hg) 56 01/30/2017 [facility] BMI Calculated 22.72 01/30/2017 [facility] Weight 54.545 01/30/2017 [facility] Height 154.94 cm 01/30/2017 [facility] Respitory Rate 20 01/30/2017 [facility] Heart Rate 65 01/30/2017 [facility] Systolic (mm Hg) 149 01/30/2017 [facility] Diastolic (mm Hg) 94 01/30/2017 [facility] Temperature Oral (F) 98.4 F 01/30/2017 [facility] Respitory Rate 15 02/14/2016 [facility] Temperature Oral (F) 97.5 F 02/14/2016 [facility] Heart Rate 61 02/14/2016 [facility] Systolic (mm Hg) 127 02/14/2016 [facility] Diastolic (mm Hg) 76 02/14/2016 [facility] Heart Rate 69 02/14/2016 [facility] Respitory Rate 16 02/14/2016 [facility] Temperature Oral (F) 97.6 F 02/14/2016 [facility] Systolic (mm Hg) 128 02/14/2016 [facility] Diastolic (mm Hg) 68 02/14/2016 [facility] BMI Calculated 18.11 02/14/2016 [facility] Weight 46.364 02/14/2016 [facility] Height 160.02 cm 02/14/2016 [facility] Respitory Rate 14 02/14/2016 [facility] Heart Rate 77 02/14/2016 [facility] Systolic (mm Hg) 113 02/14/2016 [facility] Diastolic (mm Hg) 71 02/14/2016 [facility] Temperature Oral (F) 97.4 F 02/14/2016 [facility] Diastolic (mm Hg) 68 10/20/2013 [facility] Respitory Rate 16 10/20/2013 [facility] Systolic (mm Hg) 148 10/20/2013 [facility] Temperature Oral (F) 98.2 F 10/20/2013 [facility] Heart Rate 80 10/20/2013 [facility] Weight 50 10/20/2013 [facility] BMI Calculated 20.83 10/20/2013 [facility] Height 154.94 cm 10/20/2013 [facility] Heart Rate 83 10/20/2013 [facility] Respitory Rate 18 10/20/2013 [facility] Temperature Oral (F) 98.5 F 10/20/2013 [facility] Diastolic (mm Hg) 83 10/20/2013 [facility] Systolic (mm Hg) 153 10/20/2013 [facility] Encounters Location Location Details Encounter Type Encounter Number Reason For Visit Attending Provider ADM Date DC Date Status Source OD [id number] [id number] - JOINT PAIN-L/LE HONEY CEM 04/22/2011 [id number] 10/20/2013 10/20/2013 [facility] [id number] Samgigi Alban 02/14/2016 02/14/2016 [facility] [id number] Jeanne Alcanter 01/30/2017 01/30/2017 [facility] [id number] Brian Iheme 02/03/2017 02/04/2017 [facility] [id number] Idris Chukwuma 02/05/2017 02/06/2017 [facility] [id number] ABD PAIN MEGHANN GELBER Cancel [facility] Procedures Procedure Code Date Perfomer Comments Source
--- OUTSIDE RECORDS SUMMARY | 2018-02-26 08:24 | XMS REPORT | CCD ---
Author Author Auto Generated Organization [facility] [place] Address Unknown Phone Unavailable Care Team Providers Care Nail Galvanizer Name Role Phone Nguyễn Colindres CP Allergies, [...]
--- OUTSIDE RECORDS SUMMARY | 2018-02-26 08:24 | XMS REPORT | Summary of Care ---
Author Author [facility] Organization [facility] Address Unknown Phone Unavailable Encounter JO Tim(IRENE) [id number] Date(s): 01/30/17 - 01/30/17 [facility] [address] [place] [address]- Discharge Disposition: Home or Self Care Attending Physician: Jeanne Rm MD Vital Signs 1 2 3 Most recent to oldest [Reference Range]: 154.94 cm (01/30/17 10:07 AM) Height 98.4 DegF (01/30/17 10:07 AM) Temperature Oral [96.4-99.1 DegF] 140/65 mmHg (01/30/17 3:48 PM) 139/56 mmHg (01/30/17 2:02 PM) 149/94 mmHg *HI* (01/30/17 10:07 AM) Blood Pressure [90-140/60-90 mmHg] 18 BRMIN (01/30/17 3:48 PM) 18 BRMIN (01/30/17 2:02 PM) 20 BRMIN (01/30/17 10:07 AM) Respiratory Rate [14-20 BRMIN] 68 bpm (01/30/17 3:48 PM) 68 bpm (01/30/17 2:02 PM) 65 bpm (01/30/17 10:07 AM) Peripheral Pulse Rate [60-100 bpm] 54.545 kg (01/30/17 10:07 AM) Weight 22.72 m2 (01/30/17 10:07 AM) Body Mass Index Problem List Condition Effective Dates Status Health Status Informant Abdominal Active pain(Confirmed) Anxiety(Confirmed) Active Arthritis(Confirmed) Resolved Back pain(Confirmed) Active Cholecystectomy(Conf Active irmed) Reflux(Confirmed) Active Allergies, Adverse Reactions, Alerts Substance Reaction Severity Status codeine sulfate Active penicillins Active sulfa drugs Active Medications acetaminophen-hydrocodone 325 mg-5 mg oral tablet 1 tab, Route: PO, Drug Form: TAB, Dosing Weight 54.545, kg, ONCE, STAT, Start da te: 01/30/17 11:51:00 CDT, Stop date: 01/30/17 11:51:00 CDT Start Date: 01/30/17 Stop Date: 01/30/17 Status: Completed Ativan 1 mg, 0.5 mL, Route: IVP, Drug form: INJ, ONCE, Dosing Weight 54.545, kg, Priori ty: STAT, Start date: 01/30/17 12:35:00 CDT, Stop date: 01/30/17 12:35:00 CDT Notes: (Same as: Ativan) Start Date: 01/30/17 Stop Date: 01/30/17 Status: Completed morphine Sulfate 4 mg, 1 mL, Route: IVP, Drug form: SOLN, ONCE, Dosing Weight 54.545, kg, Priorit y: STAT, Start date: 01/30/17 15:10:00 CDT, Stop date: 01/30/17 15:10:00 CDT Notes: (Same as:MORPhine Sulfate) Start Date: 01/30/17 Stop Date: 01/30/17 Status: Completed Zofran 4 mg, 2 mL, Route: IVP, Drug form: INJ, ONCE, Dosing Weight 54.545, kg, Priority : STAT, Start date: 01/30/17 15:10:00 CDT, Stop date: 01/30/17 15:10:00 CDT Notes: (Same as: Zofran) MEDICATION WASTE Product Size: 4 mgProduct Was evan: ___ mg Start Date: 01/30/17 Stop Date: 01/30/17 Status: Completed Results ELECTROLYTES Most recent to 1 oldest [Reference Range]: Sodium Lvl [135-145 140 mEq/L mEq/L] (01/30/17 11:27 AM) Potassium Lvl 4.0 mEq/L [3.5-5.1 mEq/L] (01/30/17 11:27 AM) Chloride Lvl [95-109 106 mEq/L mEq/L] (01/30/17 11:27 AM) CO2 [24-32 mEq/L] 28 mEq/L (01/30/17:27 AM) AGAP [10.0-20.0 10.0 mEq/L mEq/L] (01/30/17 AM) CHEM PANEL Most recent to 1 oldest [Reference Range]: Creatinine Lvl 0.69 mg/dL [0.50-1.40 mg/dL] (01/30/17 AM) eGFR 86 mL/min/1.73m2 1 *NA* (01/30/17 AM) BUN [7-22 mg/dL] 9 mg/dL (01/30/17 AM) B/C Ratio [6-25] 13 (01/30/17 AM) Glucose Lvl [70-99 84 mg/dL mg/dL] (01/30/17 AM) Total Protein 7.7 g/dL [6.4-8.4 g/dL] (01/30/17 AM) Albumin Lvl [3.5-5.0 3.7 g/dL g/dL] (01/30/17 AM) Globulin [2.7-4.2 4.0 g/dL g/dL] (01/30/17 AM) A/G Ratio [0.7-1.6] 0.9 (01/30/17 AM) Calcium Lvl 8.4 mg/dL [8.5-10.5 mg/dL] *LOW* (01/30/17 AM) ALT [0-65 unit/L] 13 unit/L (01/30/17:27 AM) AST [0-37 unit/L] 17 unit/L (01/30/17: AM) Alk Phos [39-136 115 unit/L unit/L] (01/30/17 AM) Bili Total [0.2-1.3 0.7 mg/dL mg/dL] (01/30/17 AM) 1Result Comment: The eGFR is calculated using [...] be mul tiplied by the estimated BMI. DRUG SCREEN Most recent to 1 oldest [Reference Range]: U Amph Scr Negative [Negative] *NA* (01/30/17 11:27 AM) U Ella Scr Negative [Negative] *NA* (01/30/17 11:27 AM) U Benzodia Scr Positive [Negative] *ABN* (01/30/17 11:27 AM) U Cocaine Scr Negative [Negative] *NA* (01/30/17 11:27 AM) U Opiate Scr Negative [Negative] *NA* (01/30/17 11:27 AM) U Phencyc Scr Negative [Negative] *NA* (01/30/17 11:27 AM) U Cannab Scr Negative [Negative] *NA* (01/30/17 11:27 AM) UDS Note See Note (01/30/17 11:27 AM) TOXICOLOGY Most recent to 1 oldest [Reference Range]: Acetaminoph Lvl 3 ug/ml [10-20 ug/ml] *LOW* (01/30/17 11:27 AM) Salicylate Lvl <1.7 mg/dL [0.0-30.0 mg/dL] (01/30/17 11:27 AM) Etoh (%) <.003 % *NA* (01/30/17 11:27 AM) Ethanol Lvl <3 mg/dL *NA* (01/30/17 11:27 AM) URINE AND STOOL Most recent to 1 oldest [Reference Range]: UA Turbidity [Clear] Clear (01/30/17 11:27 AM) UA Color [Yellow] Yellow *NA* (01/30/17 11:27 AM) UA pH [5.0-8.0] 6.0 (01/30/17 11:27 AM) UA Spec Grav 1.011 [<=1.030] (01/30/17 11:27 AM) UA Glucose [Negative Negative mg/dL mg/dL] *NA* (01/30/17:27 AM) UA Blood [Negative] Negative (01/30/17:27 AM) UA Ketones [Negative Negative mg/dL mg/dL] *NA* (01/30/17 11:27 AM) UA Protein [Negative Negative mg/dL mg/dL] (01/30/17:27 AM) UA Urobilinogen <=1.0 mg/dL [0.1-1.0 mg/dL] *NA* (01/30/17 11:27 AM) UA Bili [Negative] Negative *NA* (01/30/17 11:27 AM) UA Leuk Est Moderate [Negative] *ABN* (01/30/17:27 AM) UA Nitrite Negative [Negative] (01/30/17 11:27 AM) UA WBC [0-5 /HPF] 10 /HPF *HI* (01/30/17:27 AM) UA RBC [0-2 /HPF] 5 /HPF *HI* (01/30/17 11:27 AM) UA Sq Epi [Few /LPF] Occasional /LPF *NA* (01/30/17 11:27 AM) UA Mucus [None Seen Moderate /LPF /LPF] *ABN* (01/30/17 11:27 AM) HEMATOLOGY Most recent to 1 oldest [Reference Range]: WBC [3.7-10.4 K/CMM] 5.1 K/CMM (01/30/17 11:27 AM) RBC [4.20-5.40 4.30 M/CMM M/CMM] (01/30/17 11:27 AM) Hgb [12.0-16.0 g/dL] 14.0 g/dL (01/30/17 11:27 AM) Hct [36.0-48.0 %] 41.1 % (01/30/17 11:27 AM) MCV [80.0-98.0 fL] 95.6 fL (01/30/17 11:27 AM) MCH [27.0-31.0 pg] 32.6 pg *HI* (01/30/17 11:27 AM) MCHC [32.0-36.0 34.1 g/dL g/dL] (01/30/17 11:27 AM) RDW [11.5-14.5 %] 12.8 % (01/30/1727 AM) Platelet [133-450 239 K/CMM K/CMM] (01/30/17:27 AM) MPV [7.4-10.4 fL] 7.6 fL (01/30/1727 AM) Segs [45.0-75.0 %] 61.5 % (01/30/1727 AM) Lymphocytes 27.1 % [20.0-40.0 %] (01/30/17:27 AM) Monocytes [2.0-12.0 9.0 % %] (01/30/17:27 AM) Eosinophils [0.0-4.0 1.9 % %] (01/30/17:27 AM) Basophils [0.0-1.0 0.5 % %] (01/30/17 11:27 AM) Segs-Bands # 3.1 K/CMM [1.5-8.1 K/CMM] (01/30/17 11:27 AM) Lymphocytes # 1.4 K/CMM [1.0-5.5 K/CMM] (01/30/17 11:27 AM) Monocytes # [0.0-0.8 0.5 K/CMM K/CMM] (01/30/17 11:27 AM) Eosinophils # 0.1 K/CMM [0.0-0.5 K/CMM] (01/30/17 11:27 AM) Immunizations Given and Recorded Vaccine Date Status Refusal Reason pneumococcal 23-valent vaccine 12/11/10 Given Procedures No data available for this section Social History Social History Type Response Smoking Status Never smoker; Exposure to Tobacco Smoke None; Cigarette Smoking Last 365 Days No; Reg Smoking Cessation Counseling No Assessment and Plan No data available for this section
--- OUTSIDE RECORDS SUMMARY | 2018-02-26 08:24 | XMS REPORT | CCD ---
Author Author Auto Generated Organization [facility] Outpatient [facility] [place] Address Unknown Phone Unavailable Care Team Providers Care Janitor Caretaker Name Role Phone Nguyễn Colindres CP Allergies, [...]
--- OUTSIDE RECORDS SUMMARY | 2018-02-26 08:24 | XMS REPORT | Summary of Care ---
Author Organization Unknown Address Unknown Phone Unavailable Encounter JO Tim(IRENE) [id number] Date(s): 10/20/13 - 10/20/13 [facility] [address] Discharge Diagnosis: Urinary tract infection Discharge Diagnosis: Joint pain Discharge Disposition: Home Physician Attending: Beverly Lopez MD Reason for Visit PAIN-GENERALIZED Vital Signs Most recent to 1 2 oldest [Reference Range]: Height 154.94 cm (10/20/13 10:15 AM) Temperature Oral 98.2 DegF 98.5 DegF [96.4-99.1 DegF] (10/20/13 1:56 PM) (10/20/13 10:15 AM) Systolic Blood 148 mmHg 153 mmHg Pressure [90-140 *HI* *HI* mmHg] (10/20/13 1:56 PM) (10/20/13 10:15 AM) Diastolic Blood 68 mmHg 83 mmHg Pressure [60-90 (10/20/13 1:56 PM) (10/20/13 10:15 AM) mmHg] Respiratory Rate 16 BRMIN 18 BRMIN [14-20 BRMIN] (10/20/13 1:56 PM) (10/20/13 10:15 AM) Peripheral Pulse 80 bpm 83 bpm Rate [60-100 bpm] (10/20/13 1:56 PM) (10/20/13 10:15 AM) Weight 50 kg (10/20/13 10:15 AM) Body Mass Index 20.83 m2 (10/20/13 10:15 AM) Problem List Condition Effective Dates Status Health Status Informant Abdominal Active pain(Confirmed) Anxiety(Confirmed) Active Arthritis(Confirmed) Resolved Back pain(Confirmed) Active Cholecystectomy(Conf Active irmed) Reflux(Confirmed) Active Allergies, Adverse Reactions, Alerts Substance Reaction Severity Status penicillins Active sulfa drugs Active Medications Cipro 500 mg oral tablet 500 mg=1 tab, PO, Q12H, # 14 tab, 0 Refill(s) Start Date: 10/20/13 Stop Date: 10/27/13 Status: Ordered [place] 10/325 oral tablet 1 tab, Route: PO, Dosing Weight 50, kg, ONCE, Start date: 10/20/13 12:14:00, Sto p date: 10/20/13 12:14:00 Start Date: 10/20/13 Stop Date: 10/20/13 Status: Completed Saline Flush 0.9% 5 mL, Route: IVP, Drug Form: INJ, Dosing Weight 50, kg, PRN, PRN Line Flush, Sta rt date: 10/20/13 10:55:00, Duration: 24 hr, Stop date: 10/21/13 10:54:00 Notes: Same as: BD Posiflush Sterile Start Date: 10/20/13 Stop Date: 10/20/13 Status: Discontinued Zofran 4 mg, Route: IVP, Drug form: INJ, ONCE, Dosing Weight 50, kg, Priority: STAT, St art date: 10/20/13 12:32:00, Stop date: 10/20/13 12:32:00 Start Date: 10/20/13 Stop Date: 10/20/13 Status: Completed Results ELECTROLYTES Most recent to 1 oldest [Reference Range]: Sodium Lvl [135-145 141 mEq/L mEq/L] (10/20/13 11:45 AM) Potassium Lvl 3.7 mEq/L [3.5-5.1 mEq/L] (10/20/13 11:45 AM) Chloride Lvl [95-109 108 mEq/L mEq/L] (10/20/13 11:45 AM) CO2 [24-32 mEq/L] 27 mEq/L (10/20/13 11:45 AM) AGAP [10.0-20.0 9.7 mEq/L mEq/L] *LOW* (10/20/13 11:45 AM) CHEM PANEL Most recent to 1 oldest [Reference Range]: Creatinine Lvl 0.7 mg/dL [0.5-1.4 mg/dL] (10/20/13 11:45 AM) eGFR 87 mL/min/1.73m2 1 *NA* (10/20/13 11:45 AM) BUN [7-22 mg/dL] 8 mg/dL (10/20/13 11:45 AM) B/C Ratio [6-25] 11 (10/20/13 11:45 AM) Glucose Lvl [70-99 96 mg/dL 2 mg/dL] (10/20/13 11:45 AM) Total Protein 6.6 g/dL [6.4-8.4 g/dL] (10/20/13:45 AM) Albumin Lvl [3.5-5.0 3.2 g/dL g/dL] *LOW* (10/20/13:45 AM) Globulin [2.0-4.0 3.4 g/dL g/dL] (10/20/13:45 AM) A/G Ratio [0.7-1.6] 0.9 (10/20/13:45 AM) Calcium Lvl 8.8 mg/dL [8.5-10.5 mg/dL] (10/20/13:45 AM) ALT [0-65 unit/L] 13 unit/L (10/20/13:45 AM) AST [0-37 unit/L] 21 unit/L (10/20/13 11:45 AM) Alk Phos [39-136 91 unit/L unit/L] (10/20/13 11:45 AM) Bili Total [0.2-1.3 0.3 mg/dL mg/dL] (10/20/13 11:45 AM) Amylase Lvl [25-115 27 unit/L unit/L] (10/20/13 11:45 AM) Lipase Lvl [73-393 46 unit/L unit/L] *LOW* (10/20/13 11:45 AM) 1Result Comment: The eGFR is calculated [...] be mul tiplied by the estimated BMI. 2Interpretive Data: Adult reference range values reflect the clinical guidelines of the [place] [employer]. URINE AND STOOL Most recent to 1 oldest [Reference Range]: UA Turbidity [Clear] Clear (10/20/13 11:10 AM) UA Color [Yellow] Yellow *NA* (10/20/13 11:10 AM) UA pH [5.0-8.0] 5.0 (10/20/13 11:10 AM) UA Spec Grav 1.017 [<=1.030] (10/20/13 11:10 AM) UA Glucose [Negative Negative mg/dL mg/dL] *NA* (10/20/13 11:10 AM) UA Blood [Negative] Negative (10/20/13 11:10 AM) UA Ketones [Negative Negative mg/dL mg/dL] *NA* (10/20/13 11:10 AM) UA Protein [Negative Negative mg/dL mg/dL] (10/20/13 11:10 AM) UA Urobilinogen <=1.0 mg/dL [0.1-1.0 mg/dL] *NA* (10/20/13 11:10 AM) UA Bili [Negative] Negative *NA* (10/20/13 11:10 AM) UA Leuk Est Trace [Negative] *ABN* (10/20/13 11:10 AM) UA Nitrite Negative [Negative] (10/20/13 11:10 AM) UA WBC [0-5 /HPF] 2 /HPF (10/20/13 11:10 AM) UA RBC [0-2 /HPF] 1 /HPF (10/20/13 11:10 AM) UA Sq Epi [Few /LPF] Occasional /LPF *NA* (10/20/13 11:10 AM) HEMATOLOGY Most recent to 1 oldest [Reference Range]: WBC [3.7-10.4 K/CMM] 7.2 K/CMM (10/20/13 11:45 AM) RBC [4.20-5.40 3.53 M/CMM M/CMM] *LOW* (10/20/13 11:45 AM) Hgb [12.0-16.0 g/dL] 11.9 g/dL *LOW* (10/20/13 11:45 AM) Hct [36.0-48.0 %] 34.5 % *LOW* (10/20/13 11:45 AM) MCV [81.0-99.0 fL] 97.8 fL (10/20/13 11:45 AM) MCH [27.0-31.0 pg] 33.6 pg *HI* (10/20/13 11:45 AM) MCHC [32.0-36.0 34.4 g/dL g/dL] (10/20/13 11:45 AM) RDW [11.5-14.5 %] 12.9 % (10/20/13 11:45 AM) Platelet [133-450 279 K/CMM K/CMM] (10/20/13 11:45 AM) MPV [7.4-10.4 fL] 7.1 fL *LOW* (10/20/13 11:45 AM) Segs [45.0-75.0 %] 71.8 % (10/20/13 11:45 AM) Lymphocytes 16.6 % [20.0-40.0 %] *LOW* (10/20/13 11:45 AM) Monocytes [2.0-12.0 8.7 % %] (10/20/13 11:45 AM) Eosinophils [0.0-4.0 2.3 % %] (10/20/13 11:45 AM) Basophils [0.0-1.0 0.6 % %] (10/20/13 11:45 AM) Segs-Bands # 5.2 K/CMM [1.5-8.1 K/CMM] (10/20/13 11:45 AM) Lymphocytes # 1.2 K/CMM [1.0-5.5 K/CMM] (10/20/13 11:45 AM) Monocytes # [0.0-0.8 0.6 K/CMM K/CMM] (10/20/13 11:45 AM) Eosinophils # 0.2 K/CMM [0.0-0.5 K/CMM] (10/20/13 11:45 AM) Medications Administered During Your Visit No data available for this section Immunizations Vaccine Date Refusal Reason pneumococcal 23-valent vaccine 12/11/10
--- OUTSIDE RECORDS SUMMARY | 2018-02-26 08:24 | XMS REPORT | Summary of Care ---
Author Author [facility] Organization [facility] Address Unknown Phone Unavailable Encounter JO Tim(IRENE) [id number] Date(s): 02/14/16 - 02/14/16 [facility] [address] [place] [address]- [phone] Discharge Diagnosis: Arm pain Discharge Disposition: Home or Self Care Attending Physician: Vanessa Phoenix DO Vital Signs 1 2 3 Most recent to oldest [Reference Range]: 160.02 cm (02/14/16 10:19 AM) Height 97.5 DegF (02/14/16 2:12 PM) 97.6 DegF (02/14/16 12:31 PM) 97.4 DegF (02/14/16 10:19 AM) Temperature Oral [96.4-99.1 DegF] 127/76 mmHg (02/14/16 2:12 PM) 128/68 mmHg (02/14/16 12:31 PM) 113/71 mmHg (02/14/16 10:19 AM) Blood Pressure [90-140/60-90 mmHg] 15 BRMIN (02/14/16 2:12 PM) 16 BRMIN (02/14/16 12:31 PM) 14 BRMIN (02/14/16 10:19 AM) Respiratory Rate [14-20 BRMIN] 61 bpm (02/14/16 2:12 PM) 69 bpm (02/14/16 12:31 PM) 77 bpm (02/14/16 10:19 AM) Peripheral Pulse Rate [60-100 bpm] 46.364 kg (02/14/16 10:19 AM) Weight 18.11 m2 (02/14/16 10:19 AM) Body Mass Index Problem List Condition Effective Dates Status Health Status Informant Abdominal Active pain(Confirmed) Anxiety(Confirmed) Active Arthritis(Confirmed) Resolved Back pain(Confirmed) Active Cholecystectomy(Conf Active irmed) Reflux(Confirmed) Active Allergies, Adverse Reactions, Alerts Substance Reaction Severity Status codeine sulfate Active penicillins Active sulfa drugs Active Medications morphine Sulfate 2 mg, Route: IM, ONCE, Dosing Weight 46.364, kg, Priority: STAT, Start date: 13:32:00 CDT, Stop date: 02/14/16 13:32:00 CDT Start Date: 02/14/16 Stop Date: 02/14/16 Status: Completed morphine Sulfate 2 mg, Route: IM, ONCE, Dosing Weight 46.364, kg, Priority: STAT, Start date: 10:45:00 CDT, Stop date: 02/14/16 10:45:00 CDT Start Date: 02/14/16 Stop Date: 02/14/16 Status: Completed tramadol 50 mg oral tablet 50 mg=1 tab, PO, Q4H, PRN as needed for pain, X 7 day, # 24 tab, 0 Refill(s) Start Date: 02/14/16 Stop Date: 02/21/16 Status: Ordered Xanax 1 mg oral tablet 1 mg=1 tab, PO, Q8H, PRN Anxiety, X 10 day, # 7 tab, 0 Refill(s) Start Date: 02/14/16 Stop Date: 02/24/16 Status: Ordered Results URINE AND STOOL Most recent to 1 oldest [Reference Range]: UA Turbidity [Clear] Clear (02/14/16 11:12 AM) UA Color [Yellow] Yellow *NA* (02/14/16 11:12 AM) UA pH [5.0-8.0] 6.0 (02/14/16 11:12 AM) UA Spec Grav 1.016 [<=1.030] (02/14/16 11:12 AM) UA Glucose [Negative Negative mg/dL mg/dL] *NA* (02/14/16 11:12 AM) UA Blood [Negative] Negative (02/14/16 11:12 AM) UA Ketones [Negative Negative mg/dL mg/dL] *NA* (02/14/16 11:12 AM) UA Protein [Negative Negative mg/dL mg/dL] (02/14/16 11:12 AM) UA Urobilinogen <=1.0 mg/dL [0.1-1.0 mg/dL] *NA* (02/14/16 11:12 AM) UA Bili [Negative] Negative *NA* (02/14/16 11:12 AM) UA Leuk Est Negative [Negative] (02/14/16 11:12 AM) UA Nitrite Negative [Negative] (02/14/16 11:12 AM) UA Sq Epi [Few /LPF] Occasional /LPF *NA* (02/14/16 11:12 AM) UA Mucus [None Seen Few /LPF /LPF] *NA* (02/14/16 11:12 AM) Immunizations Given and Recorded Vaccine Date [...]
[2018-02-26] MEDS ORDERED: ATENOLOL50 MG PO (08:57)
[2018-02-26] MEDS ORDERED: PANTOPRAZOLE SO40 MG PO (08:57)
[2018-02-26] MEDS ORDERED: AMLODIPINE BESYL5 MG PO (08:57)
[2018-02-26] MEDS ORDERED: ULTRAM 50MG50 MG PO (08:57)
[2018-02-26] MEDS ORDERED: MECLIZINE HCL25 MG PO (08:57)
[2018-02-26] MEDS ORDERED: SERTRALINE HCL100 MG PO (08:57)
--- NOTE | 2018-02-26 09:44 | Diagnostic Imaging Report ---
Examination: CT head without contrast Clinical Indication: Fall with posterior head injury. Loss of consciousness. Technique: Transaxial noncontrast images from the skull base through the vertex were obtained. Sagittal and coronal reformatted images were done. Dose modulation, iterative reconstruction, and/or weight based adjustment of the mA/kV was utilized to reduce the radiation dose to as low as reasonably achievable. Comparison: Head CT performed January 07, 2015. Findings: Scalp: No abnormalities. Bones: Intact. No fractures. No blastic or lytic lesions. Brain sulci: Appropriate for patient's age. Ventricles: Normal in size and configuration. No hydrocephalus. . Extra-axial space: No abnormalities. Parenchyma: Again demonstrated are confluent areas of low-attenuation within subcortical and periventricular white matter, nonspecific, but could represent microvascular ischemic disease. No masses, hemorrhage, or acute or chronic cortical based vascular insults. Suprasellar region: No abnormalities. Craniocervical junction: The foramen magnum is patent. No Chiari one malformation. Incidental findings: Atherosclerotic calcification of the supraclinoid internal carotid arteries. Impression: 1. No new or acute intracranial finding when compared to prior head CT performed January 07, 2015. 2. Unchanged mild chronic microvascular ischemic change. Signed by: Dr. Cecilia Barros M.D. on 02/26/2018 9:52 AM
[2018-02-26] MEDS ORDERED: KETOROLAC TROMETHAMINE 60 MG/2 ML VIAL IM ONE (09:45)
--- NOTE | 2018-02-26 09:59 | Diagnostic Imaging Report ---
Examination: CT CERVICAL SPINE WITHOUT CONTRAST HISTORY:Fall with neck pain COMPARISON:None. TECHNIQUE: Multidetector helical axial images were obtained without contrast from the foramen magnum to T1. Coronal and sagittal reformatted images were done. Bone and soft tissue windows were evaluated. Dose modulation, iterative reconstruction, and/or weight based adjustment of the mA/kV was utilized to reduce the radiation dose to as low as reasonably achievable. FINDINGS: Alignment:Normal alignment and lordosis. Vertebrae: Normal height and density. No acute fracture, infection or neoplasm. Disc space heights: Severely narrowed from C4 through C7. Caliber of spinal canal: Developmentally normal. Posterior fossa and craniocervical junction: Foramen magnum patent. No Chiari 1 malformation. Soft tissues: No abnormality. Degenerative changes: C4-C5: Diffuse disc osteophyte complex and bilateral uncovertebral arthropathy result in mild left neural foraminal narrowing. No right foraminal or canal stenosis. C5-C6: Asymmetric to left disc osteophyte complex and bilateral uncovertebral arthropathy results in mild left neural foraminal narrowing. No right foraminal or canal stenosis. C6-C7: Mild bilateral uncovertebral arthropathy results in mild right neural foraminal. No canal or left foraminal stenosis. The remaining cervical levels demonstrate no canal or foraminal stenosis. Additional findings: A 4 mm calcified granuloma is demonstrated in the right lung apex. IMPRESSION: 1. No acute abnormalities. 2. Degenerative changes, as above. Signed by: Dr. Cecilia Barros M.D. on 02/26/2018 9:56 AM
== END 2018-02-26 10:45 | disposition home or self-care (01) ==
LOC: ER 08:20
DX: S00.03XA Contusion of scalp, initial encounter (principal); W18.39XA Other fall on same level, initial encounter; Y92.488 Other paved roadways as the place of occurrence of the external cause; I10 Essential (primary) hypertension; G89.29 Other chronic pain
CPT/HCPCS: 70450; 72125; 94760; 99283; J1885

== ENCOUNTER 2018-04-09 18:34 | Emergency (ER) | payer MEDICARE ==
[~2018-04-09] VITALS: Ht 154.9 cm; Wt 48.5 kg
[~2018-04-09 18:34] MED LIST changes: +AMLODIPINE BESYL5 MG PO; +ATENOLOL50 MG PO; +MECLIZINE HCL25 MG PO; +PANTOPRAZOLE SO40 MG PO; +ULTRAM 50MG50 MG PO
--- OUTSIDE RECORDS SUMMARY | 2018-04-09 18:37 | XMS REPORT | Continuity of Care Document ---
Author Author [facility] Interface Address Unknown Phone Unavailable Problems Problem Status Onset Date Classification Date Reported Comments Source Discharge Diagnosis: Acute right-sided low back pain 02/05/2017 02/08/2017 [facility] Discharge Diagnosis: Acute UTI 02/05/2017 02/08/2017 [facility] Discharge Diagnosis: Lumbar compression fracture 02/03/2017 02/07/2017 [facility] BACK PAIN Active 02/03/2017 [facility] DEPRESSION Active 01/30/2017 [facility] Discharge Diagnosis: Arm pain 02/14/2016 02/17/2016 [facility] FALL Active 02/14/2016 [facility] V76.11 - SCREEN MAMMOGRA Active 07/10/2014 [facility] [place] Discharge Diagnosis: Urinary tract infection 10/20/2013 10/22/2013 [facility] Discharge Diagnosis: Joint pain 10/20/2013 10/22/2013 [facility] PAIN-GENERALIZED Active 10/20/2013 [facility] ABD PAIN Active 06/06/2011 [facility] 719.46 - JOINT PAIN-L/LE Active 04/22/2011 [facility] [place] Abdominal pain Active Problem 07/06/2012 [facility] [place] Anxiety Active Problem 07/06/2012 [facility] [place] Back pain Active Problem 07/06/2012 [facility] [place] Cholecystectomy Active Problem 07/06/2012 [facility] [place] Reflux Active Problem 07/06/2012 [facility] [place] Abdominal pain Active Problem 02/08/2017 [facility] Anxiety Active Problem 02/08/2017 [facility] Arthritis Resolved Problem 02/08/2017 [facility] Back pain Active Problem 02/08/2017 [facility] Cholecystectomy Active Problem 02/08/2017 [facility] Reflux Active Problem 02/08/2017 [facility] Medications Medication Details Route Status Patient [...] immediately after dissolving in water. Inactive 02/06/2017 [facility] Acetaminophen 300 MG / Codeine Phosphate 30 MG Oral Tablet [Tylenol with Codeine #3] 1 tab, PO, Q6H, PRN Pain, X 7 day, # 11 tab, 0 Refill(s) Active 02/06/2017 [facility] Tramadol 50 mg, 1 tab, Route: PO, Drug form: TAB, ONCE, Dosing Weight 50, kg, Start date: 02/05/17 18:09:00 CDT, Stop date: 02/05/17 18:09:00 CDT, ..Notes: Not to exceed 400mg/day. (Same As: Ultram) Inactive 02/05/2017 [facility] Dilaudid 0.5 mg, Route: IVP, ONCE, Dosing Weight 51.364, kg, Priority: STAT, Start date: 02/03/17 23:18:00 CDT, Stop date: 02/03/17 23:18:00 CDT No Longer Active 02/04/2017 [facility] tramadol hydrochloride 50 MG Oral Tablet 50 mg=1 tab, PO, BID, X 15 day, # 20 tab, 0 Refill(s) Active 02/04/2017 [facility] Ondansetron 4 mg, 2 mL, Route: IVP, Drug form: INJ, ONCE, Dosing Weight 51.364, kg, Priority: STAT, Start date: 02/03/17 20:04:00 CDT, Stop date: 02/03/17 20:04:00 CDTNotes: (Same as: Stephen) MEDICATION WASTE Product Size: 4 mg Product Wasted: ___ mg Inactive 02/04/2017 [facility] Morphine 4 mg, 1 mL, Route: IVP, Drug form: SOLN, ONCE, Dosing Weight 51.364, kg, Priority: STAT, Start date: 02/03/17 20:04:00 CDT, Stop date: 02/03/17 20:04:00 CDTNotes: (Same as:MORPhine Sulfate) Inactive 02/04/2017 [facility] Morphine 4 mg, 1 mL, Route: IVP, Drug form: SOLN, ONCE, Dosing Weight 54.545, kg, Priority: STAT, Start date: 01/30/17 15:10:00 CDT, Stop date: 01/30/17 15:10:00 CDTNotes: (Same as:MORPhine Sulfate) Inactive 01/30/2017 [facility] Zofran 4 mg, 2 mL, Route: IVP, Drug form: INJ, ONCE, Dosing Weight 54.545, kg, Priority: STAT, Start date: 01/30/17 15:10:00 CDT, Stop date: 01/30/17 15:10:00 CDTNotes: (Same as: Zofran) MEDICATION WASTE Product Size: 4 mg Product Wasted: ___ mg Inactive 01/30/2017 [facility] Ativan 1 mg, 0.5 mL, Route: IVP, Drug form: INJ, ONCE, Dosing Weight 54.545, kg, Priority: STAT, Start date: 01/30/17 12:35:00 CDT, Stop date: 01/30/17 12:35:00 CDTNotes: (Same as: Ativan) Inactive 01/30/2017 [facility] Acetaminophen 325 MG / Hydrocodone Bitartrate 5 MG Oral Tablet 1 tab, Route: PO, Drug Form: TAB, Dosing Weight 54.545, kg, ONCE, STAT, Start date: 01/30/17 11:51:00 CDT, Stop date: 01/30/17 11:51:00 CDT Inactive 01/30/2017 [facility] Alprazolam 1 MG Oral Tablet [Xanax] 1 mg=1 tab, PO, Q8H, PRN Anxiety, X 10 day, # 7 tab, 0 Refill(s) Active 02/14/2016 [facility] Morphine 2 mg, Route: IM, ONCE, Dosing Weight 46.364, kg, Priority: STAT, Start date: 02/14/16 13:32:00 CDT, Stop date: 02/14/16 13:32:00 CDT Inactive 02/14/2016 [facility] tramadol hydrochloride 50 MG Oral Tablet 50 mg=1 tab, PO, Q4H, PRN as needed for pain, X 7 day, # 24 tab, 0 Refill(s) Active 02/14/2016 [facility] Morphine 2 mg, Route: IM, ONCE, Dosing Weight 46.364, kg, Priority: STAT, Start date: 02/14/16 10:45:00 CDT, Stop date: 02/14/16 10:45:00 CDT Inactive 02/14/2016 [facility] Ciprofloxacin 500 MG Oral Tablet [Cipro] 500 mg=1 tab, PO, Q12H, # 14 tab, 0 Refill(s) Active 10/20/2013 [facility] Zofran 4 mg, Route: IVP, Drug form: INJ, ONCE, Dosing Weight 50, kg, Priority: STAT, Start date: 10/20/13 12:32:00, Stop date: 10/20/13 12:32:00 Inactive 10/20/2013 [facility] Acetaminophen 325 MG / Hydrocodone Bitartrate 10 MG Oral Tablet [[place] 10/325] 1 tab, Route: PO, Dosing Weight 50, kg, ONCE, Start date: 10/20/13 12:14:00, Stop date: 10/20/13 12:14:00 Inactive 10/20/2013 [facility] Saline Flush 0.9% 5 mL, Route: IVP, Drug Form: INJ, Dosing Weight 50, kg, PRN, PRN Line Flush, Start date: 10/20/13 10:55:00, Duration: 24 hr, Stop date: 10/21/13 10:54:00Notes: Same as: BD Posiflush Sterile Inactive 10/20/2013 [facility] pneumococcal 23-valent vaccine 0.5 ml, Route: IM, Drug Form: INJ, Start date: 12/11/10 9:00:00, Stop date: 12/11/10 9:00:00 IM No Longer Active [facility] 12/11/2010 [facility] [place] Allergies, Adverse Reactions, Alerts Substance Category Reaction Severity Reaction type Status Date Reported Comments Source penicillins Assertion Drug allergy Active [facility] sulfa drugs Assertion Drug allergy Active [facility] codeine sulfate Assertion Drug allergy Active [facility] Immunizations Immunization Date Given Site Status Last Updated Comments Source pneumococcal 23-valent vaccine 12/11/2010 completed [place] [facility] [place] pneumococcal 23-valent vaccine 12/11/2010 Left Deltoid completed [place] [facility] Results Order Name Results Value Reference Range Date Interpretation Comments Source URINE AND STOOL UA Urobilinogen <=1.0 mg/dL 0.1 - 1.0 02/05/2017 [facility] URINE AND STOOL UA Color Ltyellow 02/05/2017 [facility] URINE AND STOOL UA Bili Negative *NA* (02/05/17 6:37 PM) Negative 02/05/2017 [facility] URINE AND STOOL UA Blood Negative (02/05/17 6:37 PM) Negative 02/05/2017 [facility] URINE AND STOOL UA Ketones 20 mg/dL Negative mg/dL 02/05/2017 [facility] URINE AND STOOL UA Glucose Negative mg/dL Negative mg/dL 02/05/2017 [facility] URINE AND STOOL UA Amorph Nicole Occasional /HPF None Seen /HPF 02/05/2017 [facility] URINE AND STOOL UA Renal Epi 7 /LPF <=0 /LPF 02/05/2017 [facility] URINE AND STOOL UA Bacteria Occasional /HPF None Seen /HPF 02/05/2017 [facility] URINE AND STOOL UA RBC 1 /HPF 0 - 2 02/05/2017 [facility] URINE AND STOOL UA WBC 40 /HPF 0 - 5 02/05/2017 [facility] URINE AND STOOL UA Sq Epi Occasional /LPF Few /LPF 02/05/2017 [facility] URINE AND STOOL UA Leuk Est Large *ABN* (02/05/17 6:37 PM) Negative 02/05/2017 [facility] URINE AND STOOL UA Nitrite Negative (02/05/17 6:37 PM) Negative 02/05/2017 [facility] URINE AND STOOL UA Turbidity Clear (02/05/17 6:37 PM) Clear 02/05/2017 [facility] URINE AND STOOL UA Spec Grav 1.013 <=1.030 02/05/2017 [facility] URINE AND STOOL UA pH 5.0 5.0 - 8.0 02/05/2017 [facility] URINE AND STOOL UA Protein Negative mg/dL Negative mg/dL 02/05/2017 [facility] CHEM PANEL eGFR 79 mL/min/1.73m2 02/04/2017 [...] Lvl 106 mg/dL 70 - 99 02/04/2017 [facility] CHEM PANEL A/G Ratio 0.8 0.7 - 1.6 02/04/2017 [facility] CHEM PANEL Globulin 4.0 g/dL 2.7 - 4.2 02/04/2017 [facility] CHEM PANEL AGAP 11.6 meq/L 10.0 - 20.0 02/04/2017 [facility] CHEM PANEL B/C Ratio 17 6 - 25 02/04/2017 [facility] HEMATOLOGY MCHC 33.8 g/dL 32.0 - 36.0 02/04/2017 [facility] HEMATOLOGY MCH 32.7 pg 27.0 - 31.0 02/04/2017 [facility] HEMATOLOGY Platelet 246 K/CMM 133 - 450 02/04/2017 [facility] MPV 7.8 fL 7.4 - 10.4 02/04/2017 [facility] RDW 13.0 % 11.5 - 14.5 02/04/2017 [facility] RBC 4.13 M/CMM 4.20 - 5.40 02/04/2017 [facility] Hgb 13.5 g/dL 12.0 - 16.0 02/04/2017 [facility] WBC 8.5 K/CMM 3.7 - 10.4 02/04/2017 [facility] MCV 96.7 fL 80.0 - 98.0 02/04/2017 [facility] Hct 40.0 % 36.0 - 48.0 02/04/2017 [facility] Eosinophils # 0.2 K/CMM 0.0 - 0.5 02/04/2017 [facility] Monocytes # 0.7 K/CMM 0.0 - 0.8 02/04/2017 [facility] Eosinophils 2.8 % 0.0 - 4.0 02/04/2017 [facility] Monocytes 8.3 % 2.0 - 12.0 02/04/2017 [facility] Lymphocytes # 2.6 K/CMM 1.0 - 5.5 02/04/2017 [facility] Segs-Bands # 4.9 K/CMM 1.5 - 8.1 02/04/2017 [facility] Basophils 0.5 % 0.0 - 1.0 02/04/2017 [facility] Lymphocytes 30.7 % 20.0 - 40.0 02/04/2017 [facility] Segs 57.7 % 45.0 - 75.0 02/04/2017 [facility] Pelvis wo IV contrast CT Pelvis wo [...] evaluate as clinically indicated. Diverticulosis sigmoid colon. SL TVU-PC 02/03/2017 - - Read by: Checo Friend MD Dictated Date/time: 02/03/17 17:46 Electronically Signed by: Checo Friend MD 02/03/17 17:56 FINAL REPORT [facility] Spine lumbar wo contrast CT (ER) [...] Checo Friend MD 02/03/17 17:46 FINAL REPORT [facility] CHEM PANEL eGFR 86 mL/min/1.73m2 01/30/2017 [...] should be multiplied by the estimated BMI. [facility] CHEM PANEL Calcium Lvl 8.4 mg/dL 8.5 - 10.5 01/30/2017 [facility] CHEM PANEL Total Protein 7.7 g/dL 6.4 - 8.4 01/30/2017 [facility] CHEM PANEL CO2 28 meq/L 24 [...] AGAP 10.0 meq/L 10.0 - 20.0 01/30/2017 [facility] CHEM PANEL A/G Ratio 0.9 0.7 - 1.6 01/30/2017 [facility] DRUG SCREEN U Phencyc Scr Negative *NA* (01/30/17 11:27 AM) Negative 01/30/2017 [facility] DRUG SCREEN UDS Note See Note (01/30/17 11:27 AM) 01/30/2017 [facility] DRUG SCREEN U Opiate Scr Negative *NA* (01/30/17 11:27 AM) Negative 01/30/2017 [facility] DRUG SCREEN U Amph Scr Negative *NA* (01/30/17 11:27 AM) Negative 01/30/2017 [facility] DRUG SCREEN U Benzodia Scr Positive *ABN* (01/30/17 11:27 AM) Negative 01/30/2017 [facility] DRUG SCREEN U Cannab Scr Negative *NA* (01/30/17 11:27 AM) Negative 01/30/2017 [facility] DRUG SCREEN U Ella Scr Negative *NA* (01/30/17 11:27 AM) Negative 01/30/2017 [facility] DRUG SCREEN U Cocaine Scr Negative *NA* (01/30/17 11:27 AM) Negative 01/30/2017 [facility] HEMATOLOGY Eosinophils # 0.1 K/CMM 0.0 - 0.5 01/30/2017 [facility] HEMATOLOGY Lymphocytes 27.1 % 20.0 - 40.0 01/30/2017 [facility] HEMATOLOGY Segs 61.5 % 45.0 - 75.0 01/30/2017 [facility] HEMATOLOGY Monocytes 9.0 % 2.0 - 12.0 01/30/2017 [facility] HEMATOLOGY Lymphocytes # 1.4 K/CMM 1.0 - 5.5 01/30/2017 [facility] HEMATOLOGY Segs-Bands # 3.1 K/CMM 1.5 - 8.1 01/30/2017 [facility] HEMATOLOGY Monocytes # 0.5 K/CMM 0.0 - 0.8 01/30/2017 [facility] HEMATOLOGY Basophils 0.5 % 0.0 - 1.0 01/30/2017 [facility] HEMATOLOGY Eosinophils 1.9 % 0.0 - 4.0 01/30/2017 [facility] HEMATOLOGY MCV 95.6 fL 80.0 - 98.0 01/30/2017 [facility] MCH 32.6 pg 27.0 - 31.0 01/30/2017 [facility] MCHC 34.1 g/dL 32.0 - 36.0 01/30/2017 [facility] HEMATOLOGY RDW 12.8 % 11.5 - 14.5 01/30/2017 [facility] HEMATOLOGY Platelet 239 K/CMM 133 - 450 01/30/2017 [facility] HEMATOLOGY MPV 7.6 fL 7.4 - 10.4 01/30/2017 [facility] HEMATOLOGY Hct 41.1 % 36.0 - 48.0 01/30/2017 [facility] HEMATOLOGY WBC 5.1 K/CMM 3.7 - 10.4 01/30/2017 [facility] HEMATOLOGY RBC 4.30 M/CMM 4.20 - 5.40 01/30/2017 [facility] HEMATOLOGY Hgb 14.0 g/dL 12.0 - 16.0 01/30/2017 [facility] TOXICOLOGY Salicylate Lvl null 0.0 - 30.0 01/30/2017 [facility] TOXICOLOGY Acetaminoph Lvl 3 ug/ml 10 - 01/30/2017 [facility] TOXICOLOGY Etoh (%) null 01/30/2017 [facility] TOXICOLOGY Ethanol Lvl null 01/30/2017 [facility] URINE AND STOOL UA Urobilinogen <=1.0 mg/dL 0.1 - 1.0 01/30/2017 [facility] URINE AND STOOL UA Mucus Moderate /LPF [...] Est Negative (02/14/16 11:12 AM) Negative 02/14/2016 [facility] URINE AND STOOL UA Sq Epi Occasional /LPF Few /LPF 02/14/2016 [facility] URINE AND STOOL UA Glucose Negative mg/dL Negative mg/dL 02/14/2016 [facility] URINE AND STOOL UA Ketones Negative mg/dL Negative mg/dL 02/14/2016 [facility] URINE AND STOOL UA Protein Negative mg/dL Negative mg/dL 02/14/2016 [facility] URINE AND STOOL UA pH 6.0 5.0 - 8.0 02/14/2016 [facility] URINE AND STOOL UA Spec Grav 1.016 <=1.030 02/14/2016 [facility] URINE AND STOOL UA Mucus Few /LPF None Seen /LPF 02/14/2016 [facility] URINE AND STOOL UA Blood Negative (02/14/16 11:12 AM) Negative 02/14/2016 [facility] URINE AND STOOL UA Color Yellow *NA* (02/14/16 11:12 AM) Yellow 02/14/2016 [facility] URINE AND STOOL UA Turbidity Clear (02/14/16 11:12 AM) Clear 02/14/2016 [facility] Chest 1view DX Chest 1view DX Patient Name: GADIEL ORTEZ IVYDALE : 1940; Age: 75 years y/o Female MR: [id number] Study: Chest 1view DX dated 02/14/2016. Clinical [...] fracture of the right distal clavicle. SL: [id number] 02/14/2016 - - Read by: Marek Aguirre MD Dictated Date/time: 02/14/16 11:09 Electronically Signed by: Marek Aguirre MD 02/14/16 11:12 FINAL REPORT [facility] CHEM PANEL Amylase Lvl 27 unit/L 25 - 115 10/20/2013 [facility] CHEM PANEL B/C Ratio 11 6 - 25 10/20/2013 [facility] CHEM PANEL AGAP 9.7 meq/L 10.0 - 20.0 10/20/2013 [facility] CHEM PANEL A/G Ratio 0.9 0.7 - 1.6 10/20/2013 [facility] CHEM PANEL Globulin 3.4 g/dL 2.0 [...] ALT 13 unit/L 0 - 65 10/20/2013 [facility] CHEM PANEL AST 21 unit/L 0 - [...] CO2 27 meq/L 24 - 32 10/20/2013 [facility] CHEM PANEL Creatinine Lvl 0.7 mg/dL 0.5 - 1.4 10/20/2013 [facility] CHEM PANEL Sodium Lvl 141 meq/L 135 - 145 10/20/2013 [facility] CHEM PANEL Glucose Lvl 96 mg/dL 70 - 99 10/20/2013 2Interpretive Data: Adult reference range values reflect the clinical guidelines of the [place] [employer]. [facility] CHEM PANEL BUN 8 mg/dL 7 - 22 10/20/2013 [facility] CHEM PANEL Lipase Lvl 46 unit/L 73 - 393 10/20/2013 [facility] HEMATOLOGY RDW 12.9 % 11.5 - 14.5 10/20/2013 [facility] HEMATOLOGY Platelet 279 K/CMM 133 - 450 10/20/2013 [facility] HEMATOLOGY MPV 7.1 fL 7.4 - 10.4 10/20/2013 [facility] MCHC 34.4 g/dL 32.0 - 36.0 10/20/2013 [facility] Hgb 11.9 g/dL 12.0 - 16.0 10/20/2013 [facility] RBC 3.53 M/CMM 4.20 - 5.40 10/20/2013 [facility] WBC 7.2 K/CMM 3.7 - 10.4 10/20/2013 [facility] MCH 33.6 pg 27.0 - 31.0 10/20/2013 [facility] MCV 97.8 fL 81.0 - 99.0 10/20/2013 [facility] HEMATOLOGY Hct 34.5 % 36.0 - 48.0 10/20/2013 [facility] HEMATOLOGY Segs 71.8 % 45.0 - 75.0 10/20/2013 [facility] HEMATOLOGY Basophils 0.6 % 0.0 - 1.0 10/20/2013 [facility] HEMATOLOGY Segs-Bands # 5.2 K/CMM 1.5 - 8.1 10/20/2013 [facility] HEMATOLOGY Lymphocytes 16.6 % 20.0 - 40.0 10/20/2013 [facility] HEMATOLOGY Monocytes 8.7 % 2.0 - 12.0 10/20/2013 [facility] HEMATOLOGY Eosinophils 2.3 % 0.0 - 4.0 10/20/2013 [facility] HEMATOLOGY Eosinophils # 0.2 K/CMM 0.0 - 0.5 10/20/2013 [facility] HEMATOLOGY Lymphocytes # 1.2 K/CMM 1.0 - 5.5 10/20/2013 [facility] HEMATOLOGY Monocytes # 0.6 K/CMM 0.0 - 0.8 10/20/2013 [facility] URINE AND STOOL UA Ketones Negative mg/dL Negative mg/dL 10/20/2013 [facility] URINE AND STOOL UA Bili Negative *NA* (10/20/13 11:10 AM) Negative 10/20/2013 [facility] URINE AND STOOL UA Glucose Negative mg/dL Negative mg/dL 10/20/2013 [facility] URINE AND STOOL UA Blood Negative (10/20/13 11:10 AM) Negative 10/20/2013 [facility] URINE AND STOOL UA Nitrite Negative (10/20/13 11:10 AM) Negative 10/20/2013 [facility] URINE AND STOOL UA Spec Grav 1.017 <=1.030 10/20/2013 [facility] URINE AND STOOL UA Color Yellow *NA* (10/20/13 11:10 AM) Yellow 10/20/2013 [facility] URINE AND STOOL UA pH 5.0 5.0 - 8.0 10/20/2013 [facility] URINE AND STOOL UA Turbidity Clear (10/20/13 11:10 AM) Clear 10/20/2013 [facility] URINE AND STOOL UA Protein Negative mg/dL Negative mg/dL 10/20/2013 [facility] URINE AND STOOL UA WBC 2 /HPF 0 - 5 10/20/2013 [facility] URINE AND STOOL UA Sq Epi Occasional /LPF Few /LPF 10/20/2013 [facility] URINE AND STOOL UA Leuk Est Trace *ABN* (10/20/13 11:10 AM) Negative 10/20/2013 [facility] URINE AND STOOL UA RBC 1 /HPF 0 - 2 10/20/2013 [facility] URINE AND STOOL UA Urobilinogen <=1.0 mg/dL 0.1 - 1.0 10/20/2013 [facility] Vital Signs Vital Sign Value Date Comments Source Systolic (mm Hg) 129 02/06/2017 [facility] Diastolic (mm Hg) 56 02/06/2017 [facility] Respitory Rate 15 02/06/2017 [facility] Heart Rate 68 02/06/2017 [facility] Temperature Oral (F) 98.5 F 02/06/2017 [facility] Respitory Rate 16 02/05/2017 [facility] Heart Rate 72 02/05/2017 [facility] Systolic (mm Hg) 108 02/05/2017 [facility] Diastolic (mm Hg) 41 02/05/2017 [facility] Weight 50 02/05/2017 [facility] BMI Calculated 18.92 02/05/2017 [facility] Temperature Oral (F) 98.4 F 02/05/2017 [facility] Respitory Rate 17 02/05/2017 [facility] Height 162.56 cm 02/05/2017 [facility] Heart Rate 68 02/05/2017 [facility] Systolic (mm Hg) 136 02/05/2017 [facility] Diastolic (mm Hg) 67 02/05/2017 [facility] Heart Rate 69 02/04/2017 [facility] Systolic (mm Hg) 133 02/04/2017 [facility] Diastolic (mm Hg) 61 02/04/2017 [facility] Systolic (mm Hg) 125 02/04/2017 [facility] Diastolic (mm Hg) 53 02/04/2017 [facility] Systolic (mm Hg) 132 02/04/2017 [facility] Diastolic (mm Hg) 62 02/04/2017 [facility] Weight 51.364 02/03/2017 [facility] BMI Calculated 20.71 02/03/2017 [facility] Height 157.48 cm 02/03/2017 [facility] Temperature Oral (F) 98.5 F 02/03/2017 [facility] Respitory Rate 18 02/03/2017 [facility] Heart Rate 69 02/03/2017 [facility] Heart Rate 68 01/30/2017 [facility] Respitory Rate [...] 69 02/14/2016 [facility] Respitory Rate 16 02/14/2016 [facility] Temperature Oral (F) 97.6 F 02/14/2016 [facility] Systolic (mm Hg) 128 02/14/2016 [facility] Diastolic (mm Hg) 68 02/14/2016 [facility] BMI Calculated 18.11 02/14/2016 [facility] Weight 46.364 02/14/2016 [facility] Height 160.02 cm 02/14/2016 [facility] Respitory Rate 14 02/14/2016 [facility] Heart Rate 77 02/14/2016 [facility] Systolic (mm Hg) 113 02/14/2016 [facility] Diastolic (mm Hg) 71 02/14/2016 [facility] Temperature Oral (F) 97.4 F 02/14/2016 [facility] Diastolic (mm Hg) 68 10/20/2013 [facility] Respitory Rate 16 10/20/2013 [facility] Systolic (mm Hg) 148 10/20/2013 [facility] Temperature Oral (F) 98.2 F 10/20/2013 [facility] Heart Rate 80 10/20/2013 [facility] Weight 50 10/20/2013 [facility] BMI Calculated 20.83 10/20/2013 [facility] Height 154.94 cm 10/20/2013 [facility] Heart Rate 83 10/20/2013 [facility] Respitory Rate 18 10/20/2013 [facility] Temperature Oral (F) 98.5 F 10/20/2013 [facility] Diastolic (mm Hg) 83 10/20/2013 [facility] Systolic (mm Hg) 153 10/20/2013 [facility] Encounters Location Location Details Encounter Type Encounter Number Reason For Visit Attending Provider ADM Date DC Date Status Source OD [id number] 719.46 - JOINT PAIN-L/LE HONEY CEM 04/22/2011 Active [facility] Jacome [facility] [id number] Beverly Presybeterian 10/20/2013 10/20/2013 [facility] Emergency [id number] Vanessa Alban 02/14/2016 02/14/2016 [facility] Emergency [id number] Jeanne Alcanter 01/30/2017 01/30/2017 [facility] Emergency [id number] Brian Iheme 02/03/2017 02/04/2017 [facility] Emergency [id number] Idris Hitchcockwuma 02/05/2017 02/06/2017 [facility] Outpatient [id number] ABD PAIN MEGHNAN LUCERO Cancel [facility] Procedures Procedure Code Date Perfomer Comments Source
--- OUTSIDE RECORDS SUMMARY | 2018-04-09 18:38 | XMS REPORT ---
Author [facility] Address Unknown Phone Unavailable Care Team Providers Care Administrative Coordinator Name Role Phone Elliott MOORE Unavailable Unavailable Problems This patient has no known problems. Allergies, Adverse Reactions, Alerts This patient has no known allergies or adverse reactions. Medications This patient has no known medications. Results Test Description Test Time Test Comments Text Results Atomic Results Result Comments CT CERVICAL SPINE WO 2018-02-26 09:52:00 [facility] [address] [address] Patient Name: GADIEL TALBOT MR #: [id number] : 1940 Age/Sex: 77/F Req #: [id number] [facility] Physician: Ordered by: RAS MOORE MD Report #: [id number] Location: ER Room/Bed: Procedure: [id number] CT/CT CERVICAL SPINE WO Exam Date: 02/26/18 Exam Time: 919 REPORT STATUS: Signed Examination: CT CERVICAL SPINE WITHOUT CONTRAST H ISTORY:Fall with neck pain COMPARISON:None. TECHNIQUE: Multidetector helical axial images were obtained without contrast from the foramen magnum to T1. Coronal and sagittal reformatted images were done. Bone and soft tissue windows were evaluated. Dose modulation, iterative reconstruction, and/or weight based adjustment of the mA/kV was utilized to reduce the radiation dose to as low as reasonably achievable. FINDINGS: Alignment:Normal alignment and lordosis. Vertebrae: Normal height and density. No acute fracture, infection or neoplasm. Disc space heights: Severely narrowed from C4 through C7. Caliber of spinal canal: Developmentally normal. Posterior fossa and craniocervical junction: Foramen magnum patent. No Chiari 1 malformation. Soft tissues: No abnormality. Degenerative changes: C4-C5: Diffuse disc osteophyte complex and bilateral uncovertebral arthropathy result in mild left neural foraminal narrowing. No right foraminal or canal st enosis. C5-C6: Asymmetric to left disc osteophyte complex and bilateral uncovertebral arthropathy results in mild left neural foraminal narrowing. No right foraminal or canal stenosis. C6-C7: Mild bilateral uncovertebral arthropathy results in mild right neural foraminal. No canal or left foraminal stenosis. The remaining cervical levels demonstrate no canal or foraminal stenosis. Additional findings: A 4 mm calcified granuloma is demonstrated in the right lung apex. IMPRESSION: 1. No acute abnormalities. 2. Degenerative changes, as above. Signed by: Dr. Eli Rabago M.D. on 02/26/2018 9:56 AM Dictated By: CECILIA RABAGO MD 5 Transcribed By: WARREN on 02/26/18955 COPY TO: RAS MOORE MD CT BRAIN WO 2018-02-26 09:40:00 [address] [address] Patient Name: GADIEL TALBOT MR #: [id number] : 1940 Age/Sex: 77/F Req #: [id number] Adm Physician: Ordered by: RAS MOORE MD Report #: [id number] Location: ER Room/Bed: Procedure: [id number] CT/CT BRAIN WO Exam Date: 02/26/18 Exam Time: 919 REPORT STATUS: Signed Examination: CT head without contrast Clinical Indication: Fall with posterior head injury. Loss of consciousness. Technique: Transaxial noncontrast images from the skull base through the vertex were obtained. Sagittal and coronal reformatted images were done. Dose modulation, iterative reconstruction, and/or weight based adjustment of the mA/kV was utilized to reduce the radiation dose to as low as reasonably achievable. Comparison: Head CT performed January 07, 2015. Findings: Scalp: No abnormalities. Bones: Intact. No fractures. No blastic or lytic lesions. Brain sulci: Appropriate for patient's age. Ventricles: Normal in size and configuration. No hydrocephalus. . Extra-axial space: No abnormalities. Parenchyma: Again demonstrated are confluent areas of low-attenuation within subcortical and periventricular white matter, nonspecific, but could represent microvascular ischemic disease. No masses, hemorrhage, or acute or chronic cortical based vascular insults. Suprasellar region: No abnormalities. Craniocervical junction: The foramen magnum is patent. No Chiari one malformation. Incidental findings: Atherosclerotic calcification of the supraclinoid internal carotid arteries. Impression: 1. No new or acute intracranial finding when compared to prior head CT performed January 07, 2015. 2. Unchanged mild chronic microvascular ischemic change. Signed by: Dr. Cecilia Rabago M.D. on 02/26/2018 9:52 AM Dictated By: CECILIA RUSH MD 1 Transcribed By: WARREN on 02/26/18951 COPY TO: RAS MOORE MD
--- NOTE | 2018-04-09 18:49 | NUR ---
VERBAL REPORT GIVEN TO FANG BANSAL.
--- NOTE | 2018-04-09 19:00 | NUR ---
DAUGHTER: GADIEL CLIFF [phone]
[2018-04-09] MEDS ORDERED: CLONAZEPAM 1 MG TAB PO STA (19:33)
[2018-04-09] MEDS ORDERED: CLONAZEPAM 1 MG TAB ONE (19:38)
[2018-04-09 20:59] VITALS: BP 111/64
== END 2018-04-09 21:15 | disposition home or self-care (01) ==
LOC: ER 18:34
DX: R41.0 Disorientation, unspecified (principal); F41.1 Generalized anxiety disorder
CPT/HCPCS: 99283

== ENCOUNTER 2018-07-06 10:46 | Emergency (ER) | payer MEDICARE, OTHER ==
[~2018-07-06] VITALS: Ht 154.9 cm; Wt 48.5 kg
--- OUTSIDE RECORDS SUMMARY | 2018-07-06 10:50 | XMS REPORT | Continuity of Care Document ---
Author Author [facility] Interface Address Unknown Phone Unavailable Problems Problem Status Onset Date Classification Date Reported Comments Source Discharge Diagnosis: Acute right-sided low back pain 02/05/2017 02/08/2017 [facility] Discharge Diagnosis: Acute UTI 02/05/2017 02/08/2017 [facility] Discharge Diagnosis: Lumbar compression fracture 02/03/2017 02/07/2017 [facility] BACK PAIN Active 02/03/2017 [facility] DEPRESSION Active 01/30/2017 [facility] Discharge Diagnosis: Arm pain 02/14/2016 02/17/2016 [facility] FALL Active 02/14/2016 [facility] Diverticulitis large intestine Active 01/06/2015 Problem 04/10/2018 [facility] V76.11 - SCREEN MAMMOGRA Active 07/10/2014 [facility] [place] Discharge Diagnosis: Urinary tract infection 10/20/2013 10/22/2013 [facility] Discharge Diagnosis: Joint pain 10/20/2013 10/22/2013 [facility] PAIN-GENERALIZED Active 10/20/2013 [facility] ABD PAIN Active 06/06/2011 [facility] 719.46 - JOINT PAIN-L/LE Active 04/22/2011 [facility] [place] Abdominal pain Active Problem 07/06/2012 [facility] [place] Anxiety Active Problem 07/06/2012 [facility] Back pain Active Problem 07/06/2012 [facility] Cholecystectomy Active Problem 07/06/2012 [facility] [place] Reflux Active Problem 07/06/2012 [facility] Abdominal pain Active Problem 02/08/2017 [facility] Anxiety Active Problem 02/08/2017 [facility] Arthritis Resolved Problem 02/08/2017 [facility] Back pain Active Problem 02/08/2017 [facility] Cholecystectomy Active Problem 02/08/2017 [facility] Reflux Active Problem 02/08/2017 [facility] Right rib fracture Active Problem 04/10/2018 [facility] Weakness generalized Active Problem 04/10/2018 [facility] Medications Medication Details Route Status Patient Instructions Ordering Provider Order Date Source Alprazolam (Xanax) 0.5 Mg Tablet, 0.5 Mg Oral As Needed as needed for Anxiety Active 02/26/2018 [facility] Atenolol 50 Mg Tablet, 1 Tab Oral Daily Active 02/26/2018 [facility] Fosfomycin 3 gm, 1 pkt, Route: PO, Drug form: PDR/REC, ONCE, Dosing Weight 50, kg, Start date: 02/05/17 19:16:00 CDT, Stop date: 02/05/17 19:16:00 CDTNotes: (Same as: Monural) mix w/ 90 to 120 ml (3 to 4 ounces) of water and stir to dissolve. Do not use hot water. Take immediately after dissolving in water. Inactive 02/06/2017 [facility] Acetaminophen 300 MG / Codeine Phosphate 30 MG Oral Tablet [Tylenol with Codeine #3] 1 tab, PO, Q6H, PRN Pain, X 7 day, # 11 tab, 0 Refill(s) Active 02/06/2017 [facility] Tramadol 50 mg, 1 tab, Route: PO, Drug form: TAB, ONCE, Dosing Weight 50, kg, Start date: 02/05/17 18:09:00 CDT, Stop date: 02/05/17 18:09:00 CDT, ..Notes: Not to exceed 400mg/day. (Same As: Ultram) Inactive 02/05/2017 [facility] Dilaudid 0.5 mg, Route: IVP, ONCE, Dosing Weight 51.364, kg, Priority: STAT, Start date: 02/03/17 23:18:00 CDT, Stop date: 02/03/17 23:18:00 CDT No Longer Active 02/04/2017 [facility] tramadol hydrochloride 50 MG Oral Tablet 50 mg=1 tab, PO, BID, X 15 day, # 20 tab, 0 Refill(s) Active 02/04/2017 [facility] Ondansetron 4 mg, 2 mL, Route: IVP, Drug form: INJ, ONCE, Dosing Weight 51.364, kg, Priority: STAT, Start date: 02/03/17 20:04:00 CDT, Stop date: 02/03/17 20:04:00 CDTNotes: (Same as: Zofran) MEDICATION WASTE Product Size: 4 mg Product Wasted: ___ mg Inactive 02/04/2017 [facility] Morphine 4 mg, 1 mL, Route: IVP, Drug form: SOLN, ONCE, Dosing Weight 51.364, kg, Priority: STAT, Start date: 02/03/17 20:04:00 CDT, Stop date: 02/03/17 20:04:00 CDTNotes: (Same as:MORPhine Sulfate) Inactive 02/04/2017 [facility] Morphine 4 mg, 1 mL, Route: IVP, Drug form: SOLN, ONCE, Dosing Weight 54.545, kg, Priority: STAT, Start date: 01/30/17 15:10:00 CDT, Stop date: 01/30/17 15:10:00 CDTNotes: (Same as:MORPhine Sulfate) Inactive 01/30/2017 [facility] Zofran 4 mg, 2 mL, Route: IVP, Drug form: INJ, ONCE, Dosing Weight 54.545, kg, Priority: STAT, Start date: 01/30/17 15:10:00 CDT, Stop date: 01/30/17 15:10:00 CDTNotes: (Same as: Zofran) MEDICATION WASTE Product Size: 4 mg Product Wasted: ___ mg Inactive 01/30/2017 [facility] Ativan 1 mg, 0.5 mL, Route: IVP, Drug form: INJ, ONCE, Dosing Weight 54.545, kg, Priority: STAT, Start date: 01/30/17 12:35:00 CDT, Stop date: 01/30/17 12:35:00 CDTNotes: (Same as: Ativan) Inactive 01/30/2017 [facility] Acetaminophen 325 MG / Hydrocodone Bitartrate 5 MG Oral Tablet 1 tab, Route: PO, Drug Form: TAB, Dosing Weight 54.545, kg, ONCE, STAT, Start date: 01/30/17 11:51:00 CDT, Stop date: 01/30/17 11:51:00 CDT Inactive 01/30/2017 [facility] Sucralfate (Carafate) 1 Gm Tablet, Active 08/19/2016 [facility] Alprazolam 1 MG Oral Tablet [Xanax] 1 mg=1 tab, PO, Q8H, PRN Anxiety, X 10 day, # 7 tab, 0 Refill(s) Active 02/14/2016 [facility] Morphine 2 mg, Route: IM, ONCE, Dosing Weight 46.364, kg, Priority: STAT, Start date: 02/14/16 13:32:00 CDT, Stop date: 02/14/16 13:32:00 CDT Inactive 02/14/2016 [facility] tramadol hydrochloride 50 MG Oral Tablet 50 mg=1 tab, PO, Q4H, PRN as needed for pain, X 7 day, # 24 tab, 0 Refill(s) Active 02/14/2016 [facility] Morphine 2 mg, Route: IM, ONCE, Dosing Weight 46.364, kg, Priority: STAT, Start date: 02/14/16 10:45:00 CDT, Stop date: 02/14/16 10:45:00 CDT Inactive 02/14/2016 [facility] Clonazepam (Klonopin) 0.5 Mg Tablet, 0.5 Mg Oral Active 10/26/2015 [facility] Famotidine 20 Mg Tab, 20 Mg Oral Daily Active 10/26/2015 [facility] Fentanyl 1 Each Patch.td72, Active 10/26/2015 [facility] Ciprofloxacin 500 MG Oral Tablet [Cipro] 500 mg=1 tab, PO, Q12H, # 14 tab, 0 Refill(s) Active 10/20/2013 [facility] Zofran 4 mg, Route: IVP, Drug form: INJ, ONCE, Dosing Weight 50, kg, Priority: STAT, Start date: 10/20/13 12:32:00, Stop date: 10/20/13 12:32:00 Inactive 10/20/2013 [facility] Acetaminophen 325 MG / Hydrocodone Bitartrate 10 MG Oral Tablet [[place] 10/325] 1 tab, Route: PO, Dosing Weight 50, kg, ONCE, Start date: 10/20/13 12:14:00, Stop date: 10/20/13 12:14:00 Inactive 10/20/2013 [facility] Saline Flush 0.9% 5 mL, Route: IVP, Drug Form: INJ, Dosing Weight 50, kg, PRN, PRN Line Flush, Start date: 10/20/13 10:55:00, Duration: 24 hr, Stop date: 10/21/13 10:54:00Notes: Same as: BD Posiflush Sterile Inactive 10/20/2013 [facility] Sertraline Hcl 100 Mg Tablet, 100 Mg Oral Daily Active 10/09/2013 [facility] Tramadol Hcl (Ultram) 50 Mg Tablet, 50 Mg Oral Three Times A Day Active 10/09/2013 [facility] Paroxetine Hcl (Paxil) 20 Mg Tablet, 1 Tab Oral Daily Active 07/12/2011 [facility] pneumococcal 23-valent vaccine 0.5 ml, Route: IM, Drug Form: INJ, Start date: 12/11/10 9:00:00, Stop date: 12/11/10 9:00:00 IM No Longer Active SYSTEM 12/11/2010 [facility] Amlodipine Besylate 5 Mg Tablet Daily Active [facility] Atenolol 50 Mg Tablet Daily Active [facility] Meclizine Hcl 25 Mg Tablet Three Times A Day Active [facility] Pantoprazole Sodium (Protonix) 40 Mg Tablet.dr Daily Active [facility] Sertraline Hcl 100 Mg Tablet Daily Active [facility] Tramadol Hcl (Ultram 50MG*) 50 Mg Tab Four Times Daily Active [facility] Allergies, Adverse Reactions, Alerts Substance Category Reaction Severity Reaction type Status Date Reported Comments Source Penicillin hives Mild Allergy to Substance Active 04/09/2018 [facility] penicillins Assertion Drug allergy Active [facility] sulfa drugs Assertion Drug allergy Active [facility] codeine sulfate Assertion Drug allergy Active [facility] Immunizations Immunization Date Given Site Status Last Updated Comments Source pneumococcal 23-valent vaccine 12/11/2010 completed [place] [facility] pneumococcal 23-valent vaccine 12/11/2010 Left Deltoid completed [place] [facility] Results Order Name Results Value Reference Range Date Interpretation Comments Source URINE AND STOOL UA Urobilinogen <=1.0 mg/dL 0.1 - 1.0 02/05/2017 [facility] URINE AND STOOL UA Color Ltyellow 02/05/2017 [facility] URINE AND STOOL UA Bili Negative *NA* (02/05/17 6:37 PM) Negative 02/05/2017 [facility] URINE AND STOOL UA Blood Negative (02/05/17 6:37 PM) Negative 02/05/2017 [facility] URINE AND STOOL UA Ketones 20 mg/dL Negative mg/dL 02/05/2017 [facility] URINE AND STOOL UA Glucose Negative mg/dL Negative mg/dL 02/05/2017 [facility] URINE AND STOOL UA Amorph Nicole Occasional /HPF None Seen /HPF 02/05/2017 [facility] URINE AND STOOL UA Renal Epi 7 /LPF <=0 /LPF 02/05/2017 [facility] URINE AND STOOL UA Bacteria Occasional /HPF None Seen /HPF 02/05/2017 [facility] URINE AND STOOL UA RBC 1 /HPF 0 - 2 02/05/2017 [facility] URINE AND STOOL UA WBC 40 /HPF 0 - 5 02/05/2017 [facility] URINE AND STOOL UA Sq Epi Occasional /LPF Few /LPF 02/05/2017 [facility] URINE AND STOOL UA Leuk Est Large *ABN* (02/05/17 6:37 PM) Negative 02/05/2017 [facility] URINE AND STOOL UA Nitrite Negative (02/05/17 6:37 PM) Negative 02/05/2017 [facility] URINE AND STOOL UA Turbidity Clear (02/05/17 6:37 PM) Clear 02/05/2017 [facility] URINE AND STOOL UA Spec Grav 1.013 <=1.030 02/05/2017 [facility] URINE AND STOOL UA pH 5.0 5.0 - 8.0 02/05/2017 [facility] URINE AND STOOL UA Protein Negative mg/dL Negative mg/dL 02/05/2017 [facility] CHEM PANEL eGFR 79 mL/min/1.73m2 02/04/2017 Result [...] Lvl 106 mg/dL 70 - 99 02/04/2017 [facility] CHEM PANEL A/G Ratio 0.8 0.7 - 1.6 02/04/2017 [facility] CHEM PANEL Globulin 4.0 g/dL 2.7 - 4.2 02/04/2017 [facility] CHEM PANEL AGAP 11.6 meq/L 10.0 - 20.0 02/04/2017 [facility] CHEM PANEL B/C Ratio 17 6 - 25 02/04/2017 [facility] HEMATOLOGY MCHC 33.8 g/dL 32.0 - 36.0 02/04/2017 [facility] HEMATOLOGY MCH 32.7 pg 27.0 - 31.0 02/04/2017 [facility] HEMATOLOGY Platelet 246 K/CMM 133 - 450 02/04/2017 [facility] HEMATOLOGY MPV 7.8 fL 7.4 - 10.4 02/04/2017 [facility] RDW 13.0 % 11.5 - 14.5 02/04/2017 [facility] RBC 4.13 M/CMM 4.20 - 5.40 02/04/2017 [facility] Hgb 13.5 g/dL 12.0 - 16.0 02/04/2017 [facility] WBC 8.5 K/CMM 3.7 - 10.4 02/04/2017 [facility] MCV 96.7 fL 80.0 - 98.0 02/04/2017 [facility] Hct 40.0 % 36.0 - 48.0 02/04/2017 [facility] Eosinophils # 0.2 K/CMM 0.0 - 0.5 02/04/2017 [facility] Monocytes # 0.7 K/CMM 0.0 - 0.8 02/04/2017 [facility] Eosinophils 2.8 % 0.0 - 4.0 02/04/2017 [facility] Monocytes 8.3 % 2.0 - 12.0 02/04/2017 [facility] Lymphocytes # 2.6 K/CMM 1.0 - 5.5 02/04/2017 [facility] Segs-Bands # 4.9 K/CMM 1.5 - 8.1 02/04/2017 [facility] Basophils 0.5 % 0.0 - 1.0 02/04/2017 [facility] Lymphocytes 30.7 % 20.0 - 40.0 02/04/2017 [facility] Segs 57.7 % 45.0 - 75.0 02/04/2017 [facility] Spine lumbar wo contrast CT (ER) Spine [...] Checo Friend MD 02/03/17 17:46 FINAL REPORT [facility] Pelvis wo IV contrast CT Pelvis wo [...] Checo Friend MD 02/03/17 17:56 FINAL REPORT [facility] CHEM [facility] eGFR 86 mL/min/1.73m2 01/30/2017 Result Comment: The [...] should be multiplied by the estimated BMI. [facility] CHEM PANEL Calcium Lvl 8.4 mg/dL 8.5 - 10.5 01/30/2017 [facility] CHEM PANEL Total Protein 7.7 g/dL 6.4 - 8.4 01/30/2017 [facility] CHEM PANEL CO2 28 meq/L 24 - 32 01/30/2017 [facility] CHEM PANEL Bili Total 0.7 mg/dL 0.2 - 1.3 01/30/2017 [facility] CHEM PANEL ALT 13 unit/L 0 - [...] Lvl 140 meq/L 135 - 145 01/30/2017 [facility] CHEM PANEL Globulin 4.0 g/dL 2.7 - 4.2 01/30/2017 [facility] CHEM PANEL B/C Ratio 13 6 - 25 01/30/2017 [facility] CHEM PANEL AGAP 10.0 meq/L 10.0 - 20.0 01/30/2017 [facility] CHEM PANEL A/G Ratio 0.9 0.7 - 1.6 01/30/2017 [facility] DRUG SCREEN U Phencyc Scr Negative *NA* (01/30/17 11:27 AM) Negative 01/30/2017 [facility] DRUG SCREEN UDS Note See Note (01/30/17 11:27 AM) 01/30/2017 [facility] DRUG SCREEN U Opiate Scr Negative *NA* (01/30/17 11:27 AM) Negative 01/30/2017 [facility] DRUG SCREEN U Amph Scr Negative *NA* (01/30/17 11:27 AM) Negative 01/30/2017 [facility] DRUG SCREEN U Benzodia Scr Positive *ABN* (01/30/17 11:27 AM) Negative 01/30/2017 [facility] DRUG SCREEN U Cannab Scr Negative *NA* (01/30/17 11:27 AM) Negative 01/30/2017 [facility] DRUG SCREEN U Ella Scr Negative *NA* (01/30/17 11:27 AM) Negative 01/30/2017 [facility] DRUG SCREEN U Cocaine Scr Negative *NA* (01/30/17 11:27 AM) Negative 01/30/2017 [facility] HEMATOLOGY Eosinophils # 0.1 K/CMM 0.0 - 0.5 01/30/2017 [facility] HEMATOLOGY Lymphocytes 27.1 % 20.0 - 40.0 01/30/2017 [facility] HEMATOLOGY Segs 61.5 % 45.0 - 75.0 01/30/2017 [facility] HEMATOLOGY Monocytes 9.0 % 2.0 - 12.0 01/30/2017 [facility] HEMATOLOGY Lymphocytes # 1.4 K/CMM 1.0 - 5.5 01/30/2017 [facility] HEMATOLOGY Segs-Bands # 3.1 K/CMM 1.5 - 8.1 01/30/2017 [facility] Monocytes # 0.5 K/CMM 0.0 - 0.8 01/30/2017 [facility] Basophils 0.5 % 0.0 - 1.0 01/30/2017 [facility] HEMATOLOGY Eosinophils 1.9 % 0.0 - 4.0 01/30/2017 [facility] MCV 95.6 fL 80.0 - 98.0 01/30/2017 [facility] MCH 32.6 pg 27.0 - 31.0 01/30/2017 [facility] MCHC 34.1 g/dL 32.0 - 36.0 01/30/2017 [facility] HEMATOLOGY RDW 12.8 % 11.5 - 14.5 01/30/2017 [facility] HEMATOLOGY Platelet 239 K/CMM 133 - 450 01/30/2017 [facility] MPV 7.6 fL 7.4 - 10.4 01/30/2017 [facility] Hct 41.1 % 36.0 - 48.0 01/30/2017 [facility] HEMATOLOGY WBC 5.1 K/CMM 3.7 - 10.4 01/30/2017 [facility] HEMATOLOGY RBC 4.30 M/CMM 4.20 - 5.40 01/30/2017 [facility] HEMATOLOGY Hgb 14.0 g/dL 12.0 - 16.0 01/30/2017 [facility] TOXICOLOGY Salicylate Lvl null 0.0 - 30.0 01/30/2017 [facility] TOXICOLOGY Acetaminoph Lvl 3 ug/ml 10 - 20 01/30/2017 [facility] TOXICOLOGY Etoh (%) null 01/30/2017 [facility] TOXICOLOGY Ethanol Lvl null 01/30/2017 [facility] URINE AND STOOL UA Urobilinogen <=1.0 [...] Sq Epi Occasional /LPF Few /LPF 02/14/2016 [facility] URINE AND STOOL UA Glucose Negative mg/dL Negative mg/dL 02/14/2016 [facility] URINE AND STOOL UA Ketones Negative mg/dL Negative mg/dL 02/14/2016 [facility] URINE AND STOOL UA Protein Negative mg/dL Negative mg/dL 02/14/2016 [facility] URINE AND STOOL UA pH 6.0 5.0 - 8.0 02/14/2016 [facility] URINE AND STOOL UA Spec Grav 1.016 <=1.030 02/14/2016 [facility] URINE AND STOOL UA Mucus Few /LPF None Seen /LPF 02/14/2016 [facility] URINE AND STOOL UA Blood Negative (02/14/16 11:12 AM) Negative 02/14/2016 [facility] URINE AND STOOL UA Color Yellow *NA* (02/14/16 11:12 AM) Yellow 02/14/2016 [facility] URINE AND STOOL UA Turbidity Clear (02/14/16 11:12 AM) Clear 02/14/2016 [facility] Chest 1view DX Chest 1view DX Patient Name: GADIEL ORTEZ WHITEHALL : 1940; Age: 75 years y/o Female MR: [id number] Study: Chest 1view DX dated 02/14/2016. Clinical [...] fracture of the right distal clavicle. SL: [id number] 02/14/2016 - - Read by: Marek Aguirre MD Dictated Date/time: 02/14/16 11:09 Electronically Signed by: Marek Aguirre MD 02/14/16 11:12 FINAL REPORT [facility] CHEM PANEL Amylase Lvl 27 unit/L 25 - 115 10/20/2013 [facility] CHEM PANEL B/C Ratio 11 6 - 25 10/20/2013 [facility] CHEM PANEL AGAP 9.7 meq/L 10.0 - 20.0 10/20/2013 [facility] CHEM PANEL A/G Ratio 0.9 0.7 - 1.6 10/20/2013 [facility] CHEM PANEL Globulin 3.4 g/dL 2.0 - [...] values reflect the clinical guidelines of the [place] [employer]. [facility] CHEM PANEL BUN 8 mg/dL 7 - 22 10/20/2013 [facility] CHEM PANEL Lipase Lvl 46 unit/L 73 - 393 10/20/2013 [facility] HEMATOLOGY RDW 12.9 % 11.5 - 14.5 10/20/2013 [facility] Platelet 279 K/CMM 133 - 450 10/20/2013 [facility] MPV 7.1 fL 7.4 - 10.4 10/20/2013 [facility] MCHC 34.4 g/dL 32.0 - 36.0 10/20/2013 [facility] Hgb 11.9 g/dL 12.0 - 16.0 10/20/2013 [facility] RBC 3.53 M/CMM 4.20 - 5.40 10/20/2013 [facility] WBC 7.2 K/CMM 3.7 - 10.4 10/20/2013 [facility] MCH 33.6 pg 27.0 - 31.0 10/20/2013 [facility] MCV 97.8 fL 81.0 - 99.0 10/20/2013 [facility] Hct 34.5 % 36.0 - 48.0 10/20/2013 [facility] Segs 71.8 % 45.0 - 75.0 10/20/2013 [facility] Basophils 0.6 % 0.0 - 1.0 10/20/2013 [facility] Segs-Bands # 5.2 K/CMM 1.5 - 8.1 10/20/2013 [facility] Lymphocytes 16.6 % 20.0 - 40.0 10/20/2013 [facility] Monocytes 8.7 % 2.0 - 12.0 10/20/2013 [facility] HEMATOLOGY Eosinophils 2.3 % 0.0 - 4.0 10/20/2013 [facility] HEMATOLOGY Eosinophils # 0.2 K/CMM 0.0 - 0.5 10/20/2013 [facility] Lymphocytes # 1.2 K/CMM 1.0 - 5.5 10/20/2013 [facility] Monocytes # 0.6 K/CMM 0.0 - 0.8 10/20/2013 [facility] URINE AND STOOL UA Ketones Negative mg/dL Negative mg/dL 10/20/2013 [facility] URINE AND STOOL UA Bili Negative *NA* (10/20/13 11:10 AM) Negative 10/20/2013 [facility] URINE AND STOOL UA Glucose Negative mg/dL Negative mg/dL 10/20/2013 [facility] URINE AND STOOL UA Blood Negative (10/20/13 11:10 AM) Negative 10/20/2013 [facility] URINE AND STOOL UA Nitrite Negative (10/20/13 11:10 AM) Negative 10/20/2013 [facility] URINE AND STOOL UA Spec Grav 1.017 <=1.030 10/20/2013 [facility] URINE AND STOOL UA Color Yellow *NA* (10/20/13 11:10 AM) Yellow 10/20/2013 [facility] URINE AND STOOL UA pH 5.0 5.0 - 8.0 10/20/2013 [facility] URINE AND STOOL UA Turbidity Clear (10/20/13 11:10 AM) Clear 10/20/2013 [facility] URINE AND STOOL UA Protein Negative mg/dL Negative mg/dL 10/20/2013 [facility] URINE AND STOOL UA WBC 2 /HPF 0 - 5 10/20/2013 [facility] URINE AND STOOL UA Sq Epi Occasional /LPF Few /LPF 10/20/2013 [facility] URINE AND STOOL UA Leuk Est Trace *ABN* (10/20/13 11:10 AM) Negative 10/20/2013 [facility] URINE AND STOOL UA RBC 1 /HPF 0 - 2 10/20/2013 [facility] URINE AND STOOL UA Urobilinogen <=1.0 mg/dL 0.1 - 1.0 10/20/2013 [facility] Vital Signs Vital Sign Value Date Comments Source Systolic (mm Hg) 129 02/06/2017 [facility] Diastolic (mm Hg) 56 02/06/2017 [facility] Respitory Rate 15 02/06/2017 [facility] Heart Rate 68 02/06/2017 [facility] Temperature Oral (F) 98.5 F 02/06/2017 [facility] Respitory Rate 16 02/05/2017 [facility] Heart Rate 72 02/05/2017 [facility] Systolic (mm Hg) 108 02/05/2017 [facility] Diastolic (mm Hg) 41 02/05/2017 [facility] Weight 50 02/05/2017 [facility] BMI Calculated 18.92 02/05/2017 [facility] Temperature Oral (F) 98.4 F 02/05/2017 [facility] Respitory Rate 17 02/05/2017 [facility] Height 162.56 cm 02/05/2017 [facility] Heart [...] [facility] Temperature Oral (F) 97.6 F 02/14/2016 [facility] Systolic (mm Hg) 128 02/14/2016 [facility] Diastolic (mm Hg) 68 02/14/2016 [facility] BMI Calculated 18.11 02/14/2016 [facility] Weight 46.364 02/14/2016 [facility] Height 160.02 cm 02/14/2016 [facility] Respitory Rate 14 02/14/2016 [facility] Heart Rate 77 02/14/2016 [facility] Systolic (mm Hg) 113 02/14/2016 [facility] Diastolic (mm Hg) 71 02/14/2016 [facility] Temperature Oral (F) 97.4 F 02/14/2016 [facility] Diastolic (mm Hg) 68 10/20/2013 [facility] Respitory Rate 16 10/20/2013 [facility] Systolic (mm Hg) 148 10/20/2013 [facility] Temperature Oral (F) 98.2 F 10/20/2013 [facility] Heart Rate 80 10/20/2013 [facility] [facility] Weight 50 10/20/2013 [facility] BMI Calculated 20.83 10/20/2013 [facility] Height 154.94 cm 10/20/2013 [facility] Heart Rate 83 10/20/2013 [facility] Respitory Rate 18 10/20/2013 [facility] Temperature Oral (F) 98.5 F 10/20/2013 [facility] Diastolic (mm Hg) 83 10/20/2013 [facility] Systolic (mm Hg) 153 10/20/2013 [facility] Encounters Location Location Details Encounter Type Encounter Number Reason For Visit Attending Provider ADM Date DC Date Status Source OD [id number] 719.46 - JOINT PAIN-L/LE HONEY CEM 04/22/2011 Active MURTAZA Louis [facility] [id number] Beverly Lopez 10/20/2013 10/20/2013 [facility] [id number] Vanessa Stevenssuf 02/14/2016 02/14/2016 [facility] [id number] Jeanne Alcanter 01/30/2017 01/30/2017 [facility] [id number] Brian Iheme 02/03/2017 02/04/2017 [facility] Emergency [id number] Idris Mcgeeuma 02/05/2017 02/06/2017 [facility] Departed Emergency Room [id number] RAS MOORE MD 02/26/2018 02/26/2018 [facility] Departed Emergency Room [id number] JUNITO MCNEIL MD 04/09/2018 04/09/2018 [facility] [id number] QUINTIN Rodriguez [facility] Procedures Procedure Code Date Perfomer Comments Source Computed tomography of brain without radiopaque contrast [id number] 02/26/2018 [facility] Computed tomography of cervical spine without contrast [id number] 02/26/2018 [facility]
--- NOTE | 2018-07-06 11:25 | Diagnostic Imaging Report ---
History:Fall, hit the head Comparison studies:None Technique: Axial images were obtained from the skull base to the vertex. Coronal and sagittal images reconstructed from the axial data. Intravenous contrast: None Dose modulation, iterative reconstruction, and/or weight based adjustment of the mA/kV was utilized to reduce the radiation dose to as low as reasonably achievable. Findings: Scalp/skull: No abnormalities. Extra-axial spaces: No masses. No fluid collections. Brain sulci: Age-appropriate. Ventricles: Age-appropriate. No hydrocephalus. Parenchyma: Scattered small hypodensities in the supratentorial white matter are small vessel ischemic changes. No masses, hemorrhage, acute or chronic cortical vascular insults. Sellar/suprasellar region: No abnormalities. Craniocervical junction: Patent foramen magnum. No Chiari one malformation. Incidental findings: Atherosclerotic calcifications in the carotid siphons . Impression: No acute abnormalities. Chronic findings: 1. Mild supratentorial white matter small vessel ischemic changes. Signed by: DR Butch Tijerina M.D. on 07/06/2018 11:21 AM
--- NOTE | 2018-07-06 12:19 | Diagnostic Imaging Report ---
EXAMINATION: RIBS BILAT W/CXR INDICATION: Status post fall, hit left ribs on wall. COMPARISON: None FINDINGS: TUBES and LINES: None. LUNGS: Lungs are well inflated. There is no evidence of pneumonia or pulmonary edema. Linear opacity in the right midlung may represent scarring or atelectasis. PLEURA: No pleural effusion or pneumothorax. HEART AND MEDIASTINUM: The cardiomediastinal silhouette is unremarkable. The aorta is tortuous with atherosclerotic calcifications. BONES AND SOFT TISSUES: Diffuse osteopenia. There are likely remote right posterior 6th-8th rib fractures. Dedicated left rib radiographs demonstrate no evidence of displaced fracture. Mild age indeterminate loss of vertebral body height at T12 and L2. UPPER ABDOMEN: No free air under the diaphragm. There are surgical clips projecting over the right upper quadrant. IMPRESSION: No acute radiographic abnormality. No evidence of displaced left rib fracture. Likely remote right 6th-8th posterior rib fractures. Suggest clinical correlation for point tenderness at this location. Mild age indeterminate loss of vertebral body height at T12 and L2. Signed by: Dr. Eliseo Wasserman MD on 07/06/2018 12:15 PM
== END 2018-07-06 15:00 | disposition home or self-care (01) ==
LOC: ER 10:46
DX: S00.83XA Contusion of other part of head, initial encounter (principal); S20.212A Contusion of left front wall of thorax, initial encounter; W01.0XXA Fall on same level from slipping, tripping and stumbling without subsequent striking against object, initial encounter; Y93.01 Activity, walking, marching and hiking; Y92.008 Other place in unspecified non-institutional (private) residence as the place of occurrence of the external cause
CPT/HCPCS: 70450; 71111; 99282

== ENCOUNTER 2018-08-01 10:35 | Emergency (ER) | payer MEDICARE, OTHER ==
[~2018-08-01] VITALS: Ht 154.9 cm; Wt 48.5 kg
--- NOTE | 2018-08-01 11:00 | NUR ---
[facility] called in regards to patient claiming she left her blue mesh bag. Awaiting confirmation from EMS services.
--- NOTE | 2018-08-01 11:27 | NUR ---
[facility] in patients living room. Patient informed. white [employer] supervisor notified of need for taxi voucher.
--- NOTE | 2018-08-01 12:21 | NUR ---
Patient ordered own uber and left factility at this time.
== END 2018-08-01 12:32 | disposition left against medical advice (07) ==
LOC: ER 10:35
DX: Z04.3 Encounter for examination and observation following other accident (principal); W01.0XXA Fall on same level from slipping, tripping and stumbling without subsequent striking against object, initial encounter; Y92.008 Other place in unspecified non-institutional (private) residence as the place of occurrence of the external cause

== ENCOUNTER → 2020-06-16 | Day surgery (SDC) | payer OTHER ==
[~2020-06-16] MED LIST changes: +BENADRYL25 M1 PO; +FENTANYL CITRATE/PF 100MCG/2 ML INJ ONE; +MIDAZOLAM HCL 2 MG/2 ML VIAL ONE; +OR PHACO EYE KIT ONE; +POVIDONE IODINE 5% (OPTH) 30 ML BTL ONE; +PREOP PHACO EYE KIT ONE; +TYLENOL # 31 EA PO
[2020-06-16 16:00] VITALS: BP 120/81
== END | disposition home or self-care (01) ==
LOC: OR 10:59
PROVIDERS: ATTEND Ophthalmology
DX: H25.12 Age-related nuclear cataract, left eye (principal); I10 Essential (primary) hypertension; M79.7 Fibromyalgia; M19.90 Unspecified osteoarthritis, unspecified site; R42 Dizziness and giddiness; K21.9 Gastro-esophageal reflux disease without esophagitis; K28.9 Gastrojejunal ulcer, unspecified as acute or chronic, without hemorrhage or perforation; M54.9 Dorsalgia, unspecified; F41.9 Anxiety disorder, unspecified; Z88.0 Allergy status to penicillin; Z01.812 Encounter for preprocedural laboratory examination; Z20.822 Contact with and (suspected) exposure to COVID-19
CPT/HCPCS: J2250; J3010; U0002; V2632

== ENCOUNTER → 2020-06-30 | Day surgery (SDC) | payer OTHER ==
[~2020-06-30] MED LIST changes: -POVIDONE IODINE 5% (OPTH) 30 ML BTL ONE
[2020-06-30 11:15] VITALS: BP 129/70
== END | disposition home or self-care (01) ==
LOC: OR 08:24
PROVIDERS: ATTEND Ophthalmology
DX: H25.11 Age-related nuclear cataract, right eye (principal); K21.9 Gastro-esophageal reflux disease without esophagitis; I10 Essential (primary) hypertension; M79.7 Fibromyalgia; F41.9 Anxiety disorder, unspecified; Z88.0 Allergy status to penicillin; Z01.812 Encounter for preprocedural laboratory examination; Z20.822 Contact with and (suspected) exposure to COVID-19
CPT/HCPCS: J2250; J3010; U0002; V2632